=== PATIENT | male | born 1950 | race Caucasian/White ===

== ENCOUNTER → 2017-12-30 17:28 | Outpatient (CLI) | payer BC, SELFPAY ==
--- NOTE | 2017-12-30 17:32 | CT_ITS ---
STUDY: CT CHEST WITHOUT CONTRAST REASON FOR EXAM: Male, 67 years old. Lung nodule follow-up RADIATION DOSAGE (If Supplied By Facility): CTDIvol = ( 11.64 ) mGy, DLP = ( 416.00 ) mGycm TECHNIQUE: Transaxial imaging was performed without the administration of intravenous contrast material. Individualized dose optimization techniques were used for this CT. COMPARISON: 09.06.16 FINDINGS: There is no pneumothorax. There are emphysematous changes of the lungs with emphysematous blebs. There is a right 2.9 mm upper lobe nodule. Series 2 image 54. There is an elevated right hemidiaphragm. There are degenerative changes of the shoulders. There are calcifications of the coronary arteries. Calcified right hilar mediastinal lymph nodes. Normal pulmonary arteries. There is atherosclerotic calcification of the aortic arch with tortuosity and elongation of the aortic arch and descending thoracic aorta. There are multi-level degenerative changes of the thoracic spine. There is no demonstrated abnormality of the visualized upper abdomen. CT/Chest without Contrast IMPRESSION: There is a right 2.9 mm upper lobe nodule. This is stable in size. No further follow-up required. Emphysema Electronically Signed: Matt Flores MD at 18:56 EST , Service support ,
== END ==
PROVIDERS: Family Provider Internal Medicine; PCP Internal Medicine; Visit Provider Internal Medicine
DX: R91.1 Solitary pulmonary nodule (principal)
CPT/HCPCS: 71250

== ENCOUNTER → 2018-07-28 14:16 | Outpatient (CLI) | payer MEDICARE, OTHER, SELFPAY ==
--- NOTE | 2018-07-28 14:23 | RAD_ITS ---
STUDY: X-RAY CHEST REASON FOR EXAM: Male, 67 years old. Abnormal EKG TECHNIQUE: Frontal and lateral views of the chest. COMPARISON: CT scan 12/30/2017. FINDINGS: The lungs are hyperexpanded. There are coarsened interstitial markings suggestive of mild chronic fibrosis. No gross focal infiltrates. No gross effusions. Moderately elevated right hemidiaphragm. Normal size heart. There are calcified mediastinal lymph nodes. Normal visualized pulmonary arteries. Normal visualized aortic arch and descending thoracic aorta. Normal visualized thoracic spine. Normal visualized ribs, clavicles, and shoulders. There is no demonstrated abnormality of the visualized soft tissue structures of the upper abdomen. RAD/Chest PA and Lateral IMPRESSION: There are findings consistent with COPD. There is no evidence of acute chest disease. Electronically Signed: John Kahn MD at 23:09 EDT , Service support ,
== END ==
PROVIDERS: Family Provider Internal Medicine; PCP Internal Medicine; Visit Provider Nurse Practitioner
DX: R94.31 Abnormal electrocardiogram [ECG] [EKG] (principal)
CPT/HCPCS: 71046

== ENCOUNTER → 2018-11-25 06:49 | Outpatient (CLI) | payer MEDICARE, OTHER, SELFPAY ==
--- NOTE | 2018-11-25 14:14 | PFTCOMP_ITS ---
COMPLETE PULMONARY FUNCTION TEST INTERPRETATION Brief HPI: Patient is a 68 year old male, currently under the care of Dr. Mcallister, who presents to [facility] for complete pulmonary function tests secondary to diagnosis of centrilobular emphysema. Respiratory therapist reports good effort and reproducible results. Interpretation: Forced expiration spirometry shows a very severe large airways obstructive ventilatory defect with an FEV1 of 39% predicted. There is a significant bronchodilator response in FVC and FEV1 by strict ATS criteria. Spirograms are of good quality and plateau slowly, indicating slowly emptying areas of the lungs. The respiratory flow volume loop shows decreased expiratory flow rates at all lung volumes consistent with airway obstruction. Lung volumes by body plethysmography show an elevated total lung capacity at 7.3 L, 125% predicted. FRC and RV are elevated out of proportion. Lung volume measurements are consistent with hyperinflation and air-trapping. Diffusion capacity by carbon monoxide is decreased at 57% predicted. The airway resistance is elevated. Compared to previous pulmonary function tests from 06/22/2015, there has been a significant reduction in FEV 1 by 19%, resulting in air trapping with hyperinflation. Impression: Partially reversible very severe large airways obstructive ventilatory defect with reduction in diffusing capacity, resulting in air trapping with hyperinflation, and in a pattern consistent with COPD/asthma overlap syndrome.
== END ==
PROVIDERS: Family Provider Internal Medicine; PCP Internal Medicine
DX: J43.2 Centrilobular emphysema (principal)
CPT/HCPCS: 94060; 94726; 94729

== ENCOUNTER → 2018-11-29 07:53 | Outpatient (CLI) | payer MEDICARE, OTHER, SELFPAY ==
[2018-11-29 08:15] VITALS: PULSE 58; PULSE 62; PULSE 69; PULSE 78; PULSE 80; PULSE 81; PULSE 82; PULSE 83; O2SAT 90; O2SAT 91; O2SAT 92; O2SAT 94
--- NOTE | 2018-11-29 12:14 | PCM.PSN.6M ---
PSN 6 Minute Walk Test - 6 Minute Walk Test 6 Minute Walk Test: 6 Minute Walk Test PSN:6-Minute Walk Test Start: 11/29/18 08:27 Freq: Status: Active Protocol: RESP.6MINW Document 11/29/18 08:15 HG (Rec: 11/29/18 08:29 HG [id number]) 6 Minute Walk Test Date Performed 11/29/18 Time Performed 08:15 Height 5 ft 7 in Weight: 160 lb Weight in Pounds 160.[address]: [facility] Doctor,Out of Assistive device used: None Pre-test Oxygen Delivery Method Room Air Pulse Ox (%) 94 Pulse Rate (60-100 beats/min) 58 L Dyspnea Fuentes Scale (0-10) 0 Exertion Fuentes Scale (6-20) 6 1st minute Oxygen Delivery Method Room Air Pulse Ox (%) 94 Pulse Rate (60-100 beats/min) 62 2nd minute Oxygen Delivery Method Room Air Pulse Ox (%) 90 Pulse Rate (60-100 beats/min) 78 3rd minute Oxygen Delivery Method Room Air Pulse Ox (%) 91 Pulse Rate (60-100 beats/min) 80 4th minute Oxygen Delivery Method Room Air Pulse Ox (%) 91 Pulse Rate (60-100 beats/min) 81 5th minute Oxygen Delivery Method Room Air Pulse Ox (%) 92 Pulse Rate (60-100 beats/min) 82 6th minute Oxygen Delivery Method Room Air Pulse Ox (%) 91 Pulse Rate (60-100 beats/min) 83 Post-test Oxygen Delivery Method Room Air Pulse Ox (%) 94 Pulse Rate (60-100 beats/min) 69 Dyspnea Fuentes Scale (0-10) 2 Exertion Fuentes Scale (6-20) 11 Full Laps Walked 23 Partial Lap, Number of Tiles Walked 0 Total Distance Walked (ft) 1357 - Interpretation Interpretation: The patient ambulated 1357 feet over the course of 6 minutes beginning on room air without assistive devices or breaks. Pretesting oxygen saturation was noted to be 94% on room air. With ambulation, the dayron oxygen saturation was 90%. This represents a significant exertional oxygen desaturation. - Recommendations Recommendations: There is no indication for the use of supplemental oxygen at this time. However, close interval follow-up is recommended, given the degree of oxygen desaturation noted during this study.
== END ==
PROVIDERS: Family Provider Internal Medicine; PCP Internal Medicine
DX: J43.2 Centrilobular emphysema (principal)
CPT/HCPCS: 94618

== ENCOUNTER → 2019-02-08 06:45 | Outpatient (CLI) | payer MEDICARE, OTHER, SELFPAY ==
--- NOTE | 2019-02-08 06:47 | CT_ITS ---
STUDY: CT CHEST WITHOUT CONTRAST REASON FOR EXAM: Male, 68 years old. Follow-up pulmonary nodule. RADIATION DOSAGE (If Supplied By Facility): CTDIvol = ( 13.16 ) mGy, DLP = ( 476.72 ) mGycm TECHNIQUE: Transaxial imaging was performed without the administration of intravenous contrast material. Individualized dose optimization techniques were used for this CT. COMPARISON: May and November 07, 2015, September 06, 2016 and December 30, 2017 FINDINGS: There are bilateral emphysematous changes present. There is a 3.4 mm stable nodule within the right middle lobe, not significantly changed since May 2015. There are calcifications of the coronary arteries. There are calcified mediastinal and right hilar lymph nodes. Normal unenhanced pulmonary arteries. Normal aorta arch and descending thoracic aorta. Normal osseous structures. The limited images of the upper abdomen demonstrate hepatic and splenic granulomas. CT/Chest without Contrast IMPRESSION: Stable 3.4 mm right middle lobe nodule since May 2015 suggesting a benign process. Emphysema. Atherosclerosis. Evidence of prior granulomatous disease. Electronically Signed: Kelly Cortes MD at 9:12 EDT Tel , Service support ,
== END ==
PROVIDERS: Family Provider Nurse Practitioner; PCP Nurse Practitioner
DX: R91.1 Solitary pulmonary nodule (principal)
CPT/HCPCS: 71250

== ENCOUNTER → 2019-09-06 | Outpatient (CLI) | payer MEDICARE, OTHER, SELFPAY ==
--- NOTE | 2019-09-06 08:13 | CDU_ITS ---
Reason For Study: carotid stenosis Rt. Velocities/BP Lt. Velocities/BP Prox CCA 81.2/16.0 cm/sec. Prox CCA 91.6/22.3 cm/sec. Mid CCA 51.3/13.4 cm/sec. Mid CCA 47.6/12.4 cm/sec. Dist CCA 51.3/14.7 cm/sec. Dist CCA 52.0/14.6 cm/sec. Prox ICA 39.9/12.4 cm/sec. Prox ICA 45.4/14.6 cm/sec. Mid ICA 57.5/21.2 cm/sec. Mid ICA 58.6/22.3 cm/sec. Dist ICA 63.0/23.4 cm/sec. Dist ICA 72.9/27.8 cm/sec. Rt. ICA/CCA = 1.2. Lt. ICA/CCA = 1.5. Prox ECA 72.1/8.2 cm/sec. Prox ECA 78.3/12.4 cm/sec. Rt. Vert. 37.7/14.6 cm/sec. Lt. Vert. 40.4/9.9 cm/sec. Right Extracranial There is intimal thickening but no significant atherosclerotic plaque noted in the right common carotid artery. There is heterogeneous, irregular atherosclerotic plaque noted in the right internal carotid artery. There is intimal thickening but no significant atherosclerotic plaque noted in the right external carotid artery. Antegrade flow is noted in the right vertebral artery. Left Extracranial There is intimal thickening but no significant atherosclerotic plaque noted in the left common carotid artery. There is heterogeneous, irregular atherosclerotic plaque noted in the left internal carotid artery. There is heterogeneous, irregular atherosclerotic plaque noted in the left external carotid artery. Antegrade flow is noted in the left vertebral artery. Procedure Carotid Duplex [id number]. The exam was diagnostic. Exam performed in department. Interpretation Summary Mild (<50%) stenosis right extracranial internal carotid. Mild (<50%) stenosis left extracranial internal carotid. Flow within the vertebral arteries is antegrade bilaterally. Ordering Physician: Kimberly Pa Performed By: Hiram Willard RVT
== END | disposition home or self-care (01) ==
LOC: PSN 07:40
PROVIDERS: Family Provider Nurse Practitioner; PCP Nurse Practitioner; Referring Provider Nurse Practitioner; Visit Provider Nurse Practitioner
DX: I65.23 Occlusion and stenosis of bilateral carotid arteries (principal)
CPT/HCPCS: 93880

== ENCOUNTER 2019-12-22 23:05 | Inpatient (IN) | payer MEDICARE, OTHER, SELFPAY ==
[2019-12-22 23:06] VITALS: BP 156/114; PULSE 70; RESP 21; TEMP 37.1; O2SAT 95; BMI 25.3
--- NOTE | 2019-12-22 23:20 | EKG12_ITS ---
Test Reason : DYSRYTHMIA Blood Pressure : / mmHG Vent. Rate : 071 BPM Atrial Rate : 071 BPM P-R Int : 154 ms QRS Dur : 090 ms QT Int : 382 ms P-R-T Axes : 076 124 071 degrees QTc Int : 415 ms Normal sinus rhythm Right axis deviation Abnormal ECG Confirmed by DENISA ANSARI, MARYURI ([id number]), health editor SALLY DAVIS ([id number]) on 12/26/2019 10:13:34 AM Referred By: AWILDA Confirmed By:RADHA CRAWLEY MD
[2019-12-22] MEDS: 0.9% Normal Saline 1,000 ML 150 ML IV (23:28)
[2019-12-22] MEDS: Albuterol 2.5 MG/3 ML VIAL.NEB. INHALATION ×3 (23:38)
[2019-12-22] MEDS: Ipratropium/Albuterol Sulfate 3 ML AMPUL.NEB INHALATION (23:38)
[2019-12-22 23:39] VITALS: PULSE 83; RESP 28
[2019-12-22 23:50] LABS: Absolute Lymphocyte Count 1.93 X10^3/uL (0.83-4.51); Absolute Neutrophil Count 9.6 X10^3/uL (2.0-7.7); Basophil# 0.08 X10^3/uL; Basophil% 0.6 % (0-1); Eosinophil# 0.09 X10^3/uL; Eosinophils% 0.7 % (0-5); Hematocrit 53.4 % (40-54); Hemoglobin 17.4 g/dL (13.0-16.5); Lymphocyte # 1.93 X10^3/ul (4.0); Lymphocyte % 14.7 % (19-41); Mean Corp Hgb Conc 32.6 g/dL (32-36); Mean Corpuscular Hgb 31.4 pg (27.0-32.0); Mean Corpuscular Volume 96.2 fL (80-94); Mean Platelet Vol. 8.9 fl (6.2-12.0); Monocyte# 1.39 X10^3/uL; Monocyte% 10.6 % (0-10); NRBC Flagged by Analyzer 0 % (0-5); Neutrophil # 9.61 X10^3/uL (2.7-7.7); Neutrophil % 72.9 % (47-70); Platelet Count 277 K/mm3 (150-450); RBC Distribution Width CV 12.4 % (11.6-14.6); RBC Distribution Width SD 43.9 fl (35.1-43.9); Red Blood Count 5.55 M/mm3 (4.6-6.2); White Blood Count 13.2 K/mm3 (4.4-11.0)
[2019-12-22 23:57] LABS: Anion Gap 2 (5-15); BUN 20 mg/dL (7-18); BUN/Creat Ratio 17.4 RATIO (10-20); Calcium,Total 9.5 mg/dL (8.5-10.1); Chloride 106 mmol/L (98-107); Creatinine, Serum 1.15 mg/dL (0.70-1.30); EST Glomerular Filtration Rate 67 mL/min (>60); Est Glom Filt Rate - Afr Amer 82 mL/min (>60); Estimated Creatinine Clearance 58.28 ml/min; Glucose 103 mg/dL (74-106); Potassium 4.9 mmol/L (3.5-5.1); Sodium Level 141 mmol/L (136-145)
[2019-12-23] VITALS (22 sets, daily range): BP systolic 119–141; BP diastolic 50–80; PULSE 68–86; RESP 18–32; TEMP 36.6–36.9; O2SAT 93–98; BMI 25.4; BMI 35.4
--- NOTE | 2019-12-23 | RAD_ITS ---
HISTORY: SOB HX OF COPD EXAMINATION/TECHNIQUE: XR Chest 2 Views: COMPARISON: 07/28/2018 FINDINGS: Cardiac telemetry leads in place. No significant change. Chronic mild elevation of the right hemidiaphragm. Normal heart size. Low emphysema. Numerous granulomatous calcifications at the right hilum and azygous region. No acute infiltrate. No vascular congestion or definite pleural effusion. RAD/Chest PA and Lateral IMPRESSION: 1. No acute disease or significant change. 2. Emphysema. Old granulomatous disease. 3. Chronic elevation of the right hemidiaphragm. at 0130 Reported and signed by: Saad Acevedo MD Electronically Signed: Saad Acevedo, at 1:29 EST Tel , Service support ,
[2019-12-23] MEDS: MethylPREDNISolone 125 MG/2 ML Vial IV (00:28)
--- NOTE | 2019-12-23 01:47 | ED.DCSUM_ITS ---
- ER Visit Summary Date of Service: 12/23/19 Chief Complaint: [Shortness of breath] History of Present Illness: The patient is a 69 M [presents the emergency department complaint shortness of breath that started yesterday. Patient developed a cough that is bringing up small amounts of white phlegm. He denies any fevers. Patient states this morning he remembers try to get up out of bed and then the next and he knew he was on the floor. Patient not sure what happened. Oftentimes with cough has a hard time catching his breath and feels like he is in a pass out.] Patient denies any chest pain. Denies recent travel or surgery. Patient does have history of COPD. Physical Examination: [HEENT-PERRLA, EOMI. Cranial nerves II through XII grossly intact. TMs clear. Mucous membranes moist. No adenopathy. Cardiovascular-regular rate and rhythm without murmur or ectopy Lungs-breath sounds bilaterally with expiratory wheezes. Patient slightly tachypneic. No excessive muscle use or retractions. Abdomen-normoactive bowel sounds, soft, nontender, no rebound or rigidity, no peritoneal signs. Extremities-intact ?4, normal range of motion, normal pulses, atraumatic] Test Results: [EKG obtained showed sinus rhythm with a ventricular rate of 71 bpm with no acute ST segment changes noted. CBC with differential showed a slightly elevated white count 13.2, hemoglobin 17, hematocrit 53, platelets 277. Chemistries unremarkable. Troponin was less than 0.015. Chest x-ray showed emphysema otherwise nothing acute.] Emergency Department Course and Treatment: [Received DuoNeb aerosol and albuterol aerosol. Patient was started on Solu-Medrol 125 mg IV. Patient was ambulated afterwards in the department and his O2 sat dropped to 87% with a few steps. Patient was ordered more albuterol.] Treatment Plan: [Admit] Disposition: [Admit] Impression: [COPD exacerbation Hypoxemia] This note was generated with [employer] dictation software. It may contain incorrect words, spelling, and punctuation that were not noted in review of the chart prior to signing ED Disposition - Plan for ED Patient: Referrals: Kimberly Pa, ACTIVITIES COORDINATOR-C [Primary Care Provider] -
--- NOTE | 2019-12-23 01:54 | PCM.HP.STD ---
Problem List (1) COPD with acute exacerbation Status: Chronic History of Present Illness Date of Admission: 12/23/19 Chief Complaint: sob The patient is a 69 year old M with a significant history of ulcerative colitis; fungus tumor status post right thoracotomy and COPD stage III who presented to emergency department with progressive worsening shortness of breath that started about 2 days ago. His symptoms began with sore throats and thereafter he developed burning in his chest. Because of the chest pain patient fine difficult to lie in the bed. At the emergency department on room air his oxygen saturation was 95%. However with ambulation his oxygen saturation dropped to 87%. His sore throat has gone away however he continues to have burning in his chest. Patient reports of productive cough of clear sputum but it is chronic. He sees a filter press tender head in [place] who gave him prednisone to take when his baseline shortness of breath worsens. As such patients has taken 3 pills of prednisone so far with his current symptoms. Patient is planning to move his pulmonary care to Dr. Khoury, filter press tender head with our [facility]. Also, patient reported passing out. He is unsure whether it is shortness of breath that caused him to pass out or not. He fell with his passing out. Past Medical History Past Medical History (Chronic Problems): Chronic Problems COPD with acute exacerbation (Chronic) Allergies Penicillins [PCN] Allergy (Verified 12/22/19 23:09) Unknown Home Medications: Ambulatory Orders Medication Instructions Recorded Albuterol Sulfate [Proventil Hfa] 6.7 gm IH Q6H PRN PRN 12/22/19 Budesonide/Formoterol 160/4.5 2 puff INHALATION BID 12/22/19 [Symbicort 160/4.5 Mcg Inhaler (SP)] Bupropion HCl [Wellbutrin Sr] 150 mg PO DAILY 12/22/19 Eszopiclone [Lunesta] 1 mg PO QHS PRN PRN 12/22/19 Mesalamine [Lialda] 2.4 gm PO DAILY 12/22/19 Prednisone See Taper PO UD 12/22/19 Tiotropium [place] [Spiriva 2 puff PO DAILY 12/22/19 Respimat] Surgical History: - - Right thoracotomy for fungus tumor Lives: Spouse/ Significant Other Smoking Status: Current every day smoker Tobacco Use: Cigarettes Alcohol: Rare - *Family History Maternal History Items: - - His mother fell broke her hip; developed sepsis and . Paternal History Items: Heart Disease - Father had a CABG. Review of Systems Constitutional: Denies: Chills, Fever, Weight Change HEENT: Reports: Sore Throat - Patient had a sore throat at the beginning of his current symptoms. His sore throat has now resolved.. Denies: Head Aches, Sinus Congestion, Sinus Drainage Cardiovascular: Denies: Chest Pain, Palpitations Respiratory: Reports: Cough, Shortness of Breath, Shortness of breath at rest, Sputum production, Wheezing Gastrointestinal: Denies: Abdominal Pain, Nausea, Vomiting Genitourinary: Denies: Dysuria Musculoskeletal: Denies: Joint Pain, Joint Tenderness Skin: Denies: Rash, Wounds Neurological: Denies: Numbness, Tingling, Focal weakness Psychiatric: Denies: Homicidal Ideations, Suicidal Ideations Hematologic/ Lymphatic: Denies: Easy Bruising, Easy Bleeding VTE Information - Inpt Only VTE Present on Admission: No VTE Mechan Device Prophylaxis: None VTE Pharm Prophylaxis ordered?: Yes - Physical Exam Vitals/I&O's: Vital Signs Temp Pulse Resp BP Pulse Ox 98.7 F 68 26 H 133/69 H 96 12/22/19 23:06 12/23/19 01:49 12/23/19 01:49 12/23/19 01:49 12/23/19 01:49 Oxygen Delivery Method Room Air Weight: 73.4 kg Body Mass Index (BMI) 25.3 General: Alert, Oriented x3, Cooperative HEENT: Atraumatic, PERRLA, EOMI, Normocephalic Neck: Supple, No JVD, Negative Carotid Bruits Lungs: Diminished, Tachypneic, Using Accessory Muscles, Wheezes, - - Conversational dyspnea Cardiovascular: Regular rate, Normal S1, Normal S2, No murmurs Abdomen: Bowel Sounds Present, Soft, Non Tender, Hyperactive Bowel Sounds Extremities: No edema, Capillary Refill Less than 3 Seconds Skin: No rashes, No breakdown Musculoskeletal: No Tenderness to Palpation of Joints or Extremities Neurological: Cranial nerves II-XII grossly intact Psych/Mental Status: Anxious Microbiology Past 72 Hours 12/22/19 23:30 Mucosa - Nose Influenza Types A,B Direct FA (JEVON) - Final Laboratory Results 12/22/19 23:30: WBC 13.2 H, RBC 5.55, Hgb 17.4 H, Hct 53.4, MCV 96.2 H, MCH 31.4, MCHC 32.6, RDW Std Deviation 43.9, RDW Coeff of Yana 12.4, Plt Count 277, MPV 8.9, Immature Gran % (Auto) 0.500, Neut % (Auto) 72.9 H, Lymph % (Auto) 14.7 L, [place] % (Auto) 10.6 H, Eos % (Auto) 0.7, Baso % (Auto) 0.6, Absolute Neuts (auto) 9.6 H, Absolute Lymphs (auto) 1.93, Nucleated RBC % 0 12/22/19 23:30: Sodium 141, Potassium 4.9, Chloride 106, Carbon Dioxide 33.0 H, Anion Gap 2 L, BUN 20 H, Creatinine 1.15, Estim Creat Clear Calc 58.28, Est GFR (MDRD) Af Amer 82, Est GFR (MDRD) Non-Af 67, BUN/Creatinine Ratio 17.4, Glucose 103, Calcium 9.5, Troponin I < 0.015 Current Medications Sodium Chloride () 1,000 mls @ 150 mls/hr IV .Q6H40M ONE Stop: 12/23/19 05:59 Last Admin: 12/22/19 23:28 Dose: 150 mls/hr Documented by: Assessment/Plan The patient is a 69 year old M with a significant history of ulcerative colitis; fungus tumor status post right thoracotomy; and COPD stage 3 who presented to emergency department with progressive worsening shortness of breath and who passed out and fell consistent with COPD exacerbation; and syncope. Acute exacerbation of COPD Impression of chest x-ray: No acute disease or significant change. Emphysema. Old granulomatous disease. Chronic elevation of the right hemidiaphragm . EKG independently reviewed confirms right axis deviation. No concerning ST or T wave abnormalities. Scheduled DuoNeb Albuterol as needed Received Solu-Medrol 125 mg in emergency department. Solu-Medrol [id number]. Start on azithromycin. Oxygen as needed. Get ABG. If ABG is is concerning consider BiPAP. Monitor BMP and CBC. Rapid influenza screen and imaging department was unremarkable. Get a comprehensive respiratory pathogen panel. Syncope Could be secondary to hypoxemia and hypercapnia EKG as above. Get orthostatic vitals. Get an echocardiogram. Tobacco abuse Bupropion continued. Nicotine patch ordered. Counseled. Depression Wellbutrin continued Ulcerative colitis Mesalamine continued Insomnia Lunesta continued DVT prophylaxis Subcutaneous Lovenox Code Visit Inpatient E&M: 26891 Init Hosp L3
[2019-12-23] MEDS: Albuterol 2.5 MG/3 ML VIAL.NEB. INHALATION (01:55)
[2019-12-23 04:01] LABS: Allen Test POS; Base Excess 1 mmol/L (-2 to +2); Bicarbonate 26.1 mmol/L (22-26); Blood Gas Specimen Type ART; O2 Delivery Device Nasal Can; PO2 77 mmHG (75-100); SITE R Radial; SO2 95 % (95-99); Time Given 340; Total Carbon Dioxide 27 mmol/L; pCO2 44.6 mmHg (35-45); pH 7.38 (7.35-7.45)
[2019-12-23 06:14] LABS: Absolute Lymphocyte Count 0.55 X10^3/uL (0.83-4.51); Absolute Neutrophil Count 10.5 X10^3/uL (2.0-7.7); Basophil# 0.02 X10^3/uL; Basophil% 0.2 % (0-1); Hemoglobin 15.6 g/dL (13.0-16.5); Lymphocyte # 0.55 X10^3/ul (4.0); Lymphocyte % 4.9 % (19-41); Mean Corp Hgb Conc 31.8 g/dL (32-36); Mean Corpuscular Hgb 30.4 pg (27.0-32.0); Mean Corpuscular Volume 95.5 fL (80-94); Monocyte# 0.13 X10^3/uL; Monocyte% 1.2 % (0-10); NRBC Flagged by Analyzer 0 % (0-5); Neutrophil # 10.53 X10^3/uL (2.7-7.7); Neutrophil % 93.2 % (47-70); POSITIVE DIFFERENTIAL YES; Platelet Count 244 K/mm3 (150-450); RBC Distribution Width CV 12.5 % (11.6-14.6); RBC Distribution Width SD 43.5 fl (35.1-43.9); Red Blood Count 5.13 M/mm3 (4.6-6.2); White Blood Count 11.3 K/mm3 (4.4-11.0)
[2019-12-23 06:35] LABS: Anion Gap 9 (5-15); BUN 18 mg/dL (7-18); BUN/Creat Ratio 13.7 RATIO (10-20); Calcium,Total 8.4 mg/dL (8.5-10.1); Chloride 104 mmol/L (98-107); Creatinine, Serum 1.31 mg/dL (0.70-1.30); EST Glomerular Filtration Rate 58 mL/min (>60); Est Glom Filt Rate - Afr Amer 70 mL/min (>60); Estimated Creatinine Clearance 51.16 ml/min; Glucose 182 mg/dL (74-106); Potassium 3.5 mmol/L (3.5-5.1); Sodium Level 138 mmol/L (136-145)
[2019-12-23 06:39] LABS: Differential Comment SCANNED; Differential Indicated SCAN CRITERIA MET
[2019-12-23] MEDS: Ipratropium/Albuterol Sulfate 3 ML AMPUL.NEB INHALATION ×4 (06:53→20:00)
--- NOTE | 2019-12-23 08:12 | PCM.PN.BLA ---
Progress Note This is a 63 years old male patient presented to the emergency room because of shortness of breath, found to have acute COPD exacerbation with hypoxia. Reportedly, patient had syncopal episode. By direct questioning, patient mentioned that he stood up at the bed edge and he collapsed because he was weak. He mentioned that he did not lose his consciousness, was not dizzy or lightheaded. He denied preceding chest pain or palpitation. Today, he reported minimal improvement of his symptoms. Chest x-ray showed no acute findings. Routine blood work was unremarkable. ABG reviewed. EKG revealed normal sinus rhythm without evidence of acute segment changes or cardiac arrhythmias. Troponin was negative. He is on IV steroids, IV Zithromax and bronchodilators. Plan to continue same treatment, cancel 2D echocardiogram. STROKE Vital Signs/Narrative: Vital Signs Temp Pulse Resp BP Pulse Ox 12/23/19 06:53 84 20 H 93 12/23/19 06:51 98.2 F 69 22 H 119/67 96 12/23/19 04:40 98.3 F 77 26 H 130/67 H 95
[2019-12-23] MEDS: Enoxaparin 40 MG/0.4 ML Syringe SC (09:35)
[2019-12-23] MEDS: guaiFENesin 1,200 MG Tablet 1200 MG PO ×2 (09:35→21:22)
[2019-12-23] MEDS: buPROPion (SR) 150 MG Tablet.SA PO (09:36)
[2019-12-23] MEDS: Mesalamine 1.2 GM Tablet 2.4 GM PO (09:36)
--- NOTE | 2019-12-23 09:50 | CASEMGMT ---
RN FERNANDA FLASH WELDING MACHINE OPERATOR CM to room to meet with patient for initial transition planning/care coordination assessment. USAMA MICHAEL introduced self and role at [facility]. Pt voices understanding and consents to assessment at this time. Pt sitting up in chair in room in no distress at this time. Pt is A/O at this time and answers all questions appropriately. Care providers, pharmacy, and demographics verified/updated at this time. PCP: Dr Kimberly Pa Specialists: Dr Hamilton @ [facility] --pulmonology. States is in the process of switching to Dr Khoury. Dr Kincaid--cardiaology @ [facility] Preferred Pharmacy: [facility] Retail Insurance: MCR, MMO Prescription Benefit: Yes Living Will/HPOA: Has both LW and Healthcare POA, who is his daughter, Kimmie Ibanez. LNOK: : Zohra Archibald. 3 adult children Living Arrangements: Lives with his . Independent. Transportation: Pt states drives self and states no transportation concerns at this time. also drives DME: States has the following DME: [employer]. No Home O2. May need Home oxygen qualification testing completed prior to discharge. Given list of local DME companies--pt's preference is [employer]. Pt states no need for further DME at this time. HHC/SNF: No history of either. Has went to [facility] in the past for OP therapy. Pt wishes to return home and states has no concerns with going home at time of discharge. CM to follow for home oxygen needs and any further discharge planning/needs. Pt voices no further concerns/needs at this time. Advised pt to ask for CM if any further questions/concerns/needs arise. Voices understanding. PLAN: Home. May need Home oxygen qualification testing completed prior to discharge. [employer] is pt's preference for DME company. Greg REYNOSO RN, CM
[2019-12-23] MEDS: 0.9% Saline Lock 10 ML Syringe IV (21:25)
[2019-12-23] MEDS: Zolpidem Tartrate 5 MG Tablet PO (23:58)
[2019-12-24] VITALS (16 sets, daily range): BP systolic 120–145; BP diastolic 62–72; PULSE 61–90; RESP 14–21; TEMP 36.3–36.7; O2SAT 95–97
[2019-12-24] MEDS: Ipratropium/Albuterol Sulfate 3 ML AMPUL.NEB INHALATION ×5 (07:14→22:38)
--- NOTE | 2019-12-24 07:49 | PCM.PROGNOTE ---
Patient Problems: Active and Suspected Problems COPD with acute exacerbation (Acute) Subjective: Chief complaint follow-up after admission for acute COPD exacerbation triggered by rhinovirus and hypoxia. Patient seen and examined. No acute events overnight. He reported very minimal slow improvement of his symptoms, still having difficulties expectorating sputum. Shortness of breath slightly better than yesterday. Remains on 2 L of oxygen, other vital signs are stable. - Physical Exam Vitals/I&O's: Vital Signs Temp Pulse Resp BP Pulse Ox 97.6 F L 70 20 H 130/66 H 95 12/24/19 07:38 12/24/19 07:38 12/24/19 07:38 12/24/19 07:38 12/24/19 07:38 Oxygen Flow Rate (L/min) 2 Oxygen Delivery Method Nasal Cannula Weight: 162 lb 7.691 oz Body Mass Index (BMI) 25.4 Intake and Output for Last 24 Hours 12/22/19 12/23/19 12/24/19 23:59 23:59 23:59 Intake Total 2347.00 / 2347.00 Output Total 1989 Balance 357.00 / 357.00 General: Alert, Oriented x3, Cooperative, - - Minimally short of breath. HEENT: Atraumatic, PERRLA, EOMI, Normocephalic Oral: Moist Mucosa, No Gingival or Mucosal Lesions/ Ulcerations Neck: Supple, No JVD, Negative Carotid Bruits, Trachea Midline, Thyroid Normal Size and Texture Lungs: No rales, Diminished, Rhonchi, Short of Breath, - - Decreased breath sounds bilateral, bilateral expiratory wheezes. Cardiovascular: Regular rate, Regular Rhythm, Normal S1, Normal S2, PMI Normal Abdomen: Bowel Sounds Present, Soft, Non Tender, Non-Distended, No Hepato-splenomegaly Extremities: No clubbing, No cyanosis, No edema Skin: No rashes, No breakdown Lymphatic: No Cervical, Supraclavicular, or Inguinal Adenopathy Neurological: Cranial nerves II-XII grossly intact, Neuro grossly intact Psych/Mental Status: Normal Affect, Appropriate Microbiology Past 72 Hours 12/23/19 03:40 Mucosa - Nasopharyngeal Respiratory Panel (PCR) - Final Rhinovirus 12/22/19 23:30 Mucosa - Nose Influenza Types A,B Direct FA (JEVON) - Final Current Medications Acetaminophen (Tylenol) 650 mg PO Q6H PRN PRN PRN Reason: Pain Score 1-10 /Temp>100.7 Acetylcysteine (Mucomyst) 800 mg INHALATION Q8H.RT [facility] Albuterol Sulfate (Ventolin Aerosols) 2.5 mg INHALATION Q2H PRN PRN PRN Reason: Shortness of Breath/Wheezing Albuterol/Ipratropium (Duoneb) 3 ml INHALATION Q4HWA.RT [facility] Last Admin: 12/24/19 07:14 Dose: 3 ml Documented by: Bupropion HCl (Wellbutrin Sr (150mg Tablets)) 150 mg PO DAILY [facility] Last Admin: 12/23/19 09:36 Dose: 150 mg Documented by: Enoxaparin Sodium (Lovenox) 40 mg SC DAILY [facility] Last Admin: 12/23/19 09:35 Dose: 40 mg Documented by: Glucagon () 1 mg IM .X1 PRN PRN Reason: Hypoglycemia Guaifenesin (Mucinex) 1,200 mg PO BID [facility] Last Admin: 12/23/19 21:22 Dose: 1,200 mg Documented by: Sodium Chloride () 250 mls @ 15 mls/hr IV .[id number] PRN PRN Reason: Saline Flush Last Infusion: 12/23/19 22:57 Dose: 0 mls/hr Documented by: Sodium Chloride () 250 mls @ 15 mls/hr IV .[id number] PRN PRN Reason: Additional IVPB Infusion Azithromycin 500 mg/ Dextrose 255 mls @ 250 mls/hr IV Q24@2200 [facility] Stop: 12/24/19 23:02 Last Infusion: 12/23/19 22:32 Dose: Infused Documented by: Dextrose (Dextrose 10%-Water) 250 mls @ 999 mls/hr IV .Q16M PRN; Protocol PRN Reason: HYPOGLYCEMIA Mesalamine (Lialda) 2.4 gm PO DAILYCM [facility] Last Admin: 12/23/19 09:36 Dose: 2.4 gm Documented by: Methylprednisolone (Solu-Medrol) 40 mg IV Q8 [facility] Last Admin: 12/24/19 05:35 Dose: 40 mg Documented by: Nicotine (Nicoderm Cq (Pbkc)) 21 mg TRANSDERM. DAILY [facility] Last Admin: 12/23/19 04:32 Dose: 21 mg Documented by: Ondansetron HCl (Zofran) 4 mg IV Q8H PRN PRN PRN Reason: Nausea Sodium Chloride () 10 - 40 ml IV UD PRN PRN Reason: SALINE FLUSH Last Admin: 12/23/19 21:25 Dose: 10 ml Documented by: Zolpidem Tartrate (Ambien (Generic)) 5 mg PO QHS PRN PRN PRN Reason: SLEEP Last Admin: 12/23/19 23:58 Dose: 5 mg Documented by: Medical Necessity - Tobacco Use Smoking Status: Current every day smoker Tobacco Use: Cigarettes Assessment/Plan All Active Problems COPD with acute exacerbation (Acute) This is a 69 years old male patient presented to the emergency room because of worsening shortness of breath and wheezing as well as cough and he was found to have acute COPD exacerbation with hypoxia. #1 acute COPD exacerbation/hypoxia: Triggered by rhinovirus. Chest x-ray reviewed, no acute infiltrate consolidation. He is on IV Solu-Medrol, IV Zithromax and bronchodilators. He remained on 2 L of oxygen, minimal improvement. Plan: Continue same treatment, start Mucomyst inhalation 3 times daily. #2 ulcerative colitis: Stable, no complaints. Continue mesalamine. #3 depression: Stable, continue Wellbutrin. #4 tobacco abuse: NicoDerm patch. #5 DVT prophylaxis: Subcu Lovenox. This note was generated with [employer] dictation software. It may contain incorrect words, spelling, and punctuation that were not noted in checking the note before signing. Code Visit Inpatient E&M: 45170 Subs Hosp L2
[2019-12-24] MEDS: Mesalamine 1.2 GM Tablet 2.4 GM PO (09:14)
[2019-12-24] MEDS: guaiFENesin 1,200 MG Tablet 1200 MG PO ×2 (09:15→21:42)
[2019-12-24] MEDS: buPROPion (SR) 150 MG Tablet.SA PO (09:15)
[2019-12-24] MEDS: Enoxaparin 40 MG/0.4 ML Syringe SC (09:15)
[2019-12-24] MEDS: 0.9% Saline Lock 10 ML Syringe IV ×2 (13:21→21:42)
[2019-12-25] VITALS (16 sets, daily range): BP systolic 124–143; BP diastolic 64–75; PULSE 67–92; RESP 16–20; TEMP 36.4–36.8; O2SAT 88–95
[2019-12-25] MEDS: Zolpidem Tartrate 5 MG Tablet PO ×2 (00:01→23:44)
[2019-12-25] MEDS: 0.9% Saline Lock 10 ML Syringe IV ×3 (06:17→21:05)
[2019-12-25] MEDS: Ipratropium/Albuterol Sulfate 3 ML AMPUL.NEB INHALATION ×5 (07:23→22:42)
--- NOTE | 2019-12-25 08:08 | PN_ITS ---
Patient Problems: Active and Suspected Problems COPD with acute exacerbation (Acute) Subjective: Chief complaint: Follow-up after admission for acute COPD exacerbation and hypoxia. Patient seen and examined. No acute events overnight. He reported mild improvement of his shortness of breath, still having wheezing, difficulty ex pectorating sputum. Remains on 2 L of oxygen. His vital signs are stable. - Physical Exam Vitals/I&O's: Vital Signs Temp Pulse Resp BP Pulse Ox 98.3 F 67 16 143/69 H 95 12/25/19 03:13 12/25/19 07:23 12/25/19 07:23 12/25/19 06:30 12/25/19 07:23 Oxygen Flow Rate (L/min) 2 Oxygen Delivery Method Nasal Cannula Weight: 162 lb 7.691 oz Body Mass Index (BMI) 25.4 Orthostatic Vital Signs Start: 12/24/19 09:07 Freq: q24h Status: Active Protocol: Activity Type Activity Date Activity User E-Sign Co-Sign Detail Recorded Client Recorded Date Recorded By Document 12/25/19 06:30 PAL [id number] 12/25/19 06:36 PAL 12/25/19 06:30 Orthostatic Vitals Standing -Blood Pressure (90/60-120/80 mm Hg) 124/72 H -Extremity Use Right Arm -Pulse Rate (60-100 beats/min) 78 Sitting -Blood Pressure (90/60-120/80 mm Hg) 129/71 H -Extremity Use Right Arm -Pulse Rate (60-100 beats/min) 75 Lying -Blood Pressure (90/60-120/80 mm Hg) 143/69 H -Extremity Use Right Arm -Pulse Rate (60-100 beats/min) 78 Intake and Output for Last 24 Hours 12/23/19 12/24/19 12/25/19 23:59 23:59 23:59 Intake Total 2347.00 / 2347.00 1874 250 / 250 Output Total 1989 125 / 125 Balance 357.00 / 357.00 1874 125 / 125 General: Alert, Oriented x3, Cooperative, No apparent distress HEENT: Atraumatic, PERRLA, EOMI, Normocephalic Oral: Moist Mucosa, No Gingival or Mucosal Lesions/ Ulcerations Neck: Supple, No JVD, Negative Carotid Bruits, Trachea Midline, Thyroid Normal Size and Texture Lungs: No rhonchi, No rales, Diminished, - - Decreased breath sounds bilateral, significant bilateral expiratory wheezes. Cardiovascular: Regular rate, Regular Rhythm, Normal S1, Normal S2, PMI Normal Abdomen: Bowel Sounds Present, Soft, Non Tender, Non-Distended, No Hepato- splenomegaly Extremities: No clubbing, No cyanosis, No edema Skin: No rashes, No breakdown Lymphatic: No Cervical, Supraclavicular, or Inguinal Adenopathy Neurological: Cranial nerves II-XII grossly intact, Neuro grossly intact Psych/Mental Status: Normal Affect, Appropriate Microbiology Past 72 Hours 12/23/19 03:40 Mucosa - Nasopharyngeal Respiratory Panel (PCR) - Final Rhinovirus 12/22/19 23:30 Mucosa - Nose Influenza Types A,B Direct FA (JEVON) - Final Current Medications Acetaminophen (Tylenol) 650 mg PO Q6H PRN PRN PRN Reason: Pain Score 1-10 /Temp>100.7 Acetylcysteine (Mucomyst) 800 mg INHALATION Q8H.RT [facility] Last Admin: 12/25/19 07:23 Dose: Not Given Documented by: Albuterol Sulfate (Ventolin Aerosols) 2.5 mg INHALATION Q2H PRN PRN PRN Reason: Shortness of Breath/Wheezing Albuterol/Ipratropium (Duoneb) 3 ml INHALATION Q4HWA.RT [facility] Last Admin: 12/25/19 07:23 Dose: 3 ml Documented by: Bupropion HCl (Wellbutrin Sr (150mg Tablets)) 150 mg PO DAILY [facility] Last Admin: 12/24/19 09:15 Dose: 150 mg Documented by: Enoxaparin Sodium (Lovenox) 40 mg SC DAILY [facility] Last Admin: 12/24/19 09:15 Dose: 40 mg Documented by: Glucagon () 1 mg IM .X1 PRN PRN Reason: Hypoglycemia Guaifenesin (Mucinex) 1,200 mg PO BID [facility] Last Admin: 12/24/19 21:42 Dose: 1,200 mg Documented by: Sodium Chloride () 250 mls @ 15 mls/hr IV .[id number] PRN PRN Reason: Saline Flush Last Infusion: 12/23/19 22:57 Dose: 0 mls/hr Documented by: Sodium Chloride () 250 mls @ 15 mls/hr IV .[id number] PRN PRN Reason: Additional IVPB Infusion Dextrose (Dextrose 10%-Water) 250 mls @ 999 mls/hr IV .Q16M PRN; Protocol PRN Reason: HYPOGLYCEMIA Mesalamine (Lialda) 2.4 gm PO DAILYCM [facility] Last Admin: 12/24/19 09:14 Dose: 2.4 gm Documented by: Methylprednisolone (Solu-Medrol) 40 mg IV Q8 [facility] Last Admin: 12/25/19 06:16 Dose: 40 mg Documented by: Nicotine (Nicoderm Cq (Pbkc)) 21 mg TRANSDERM. DAILY [facility] Last Admin: 12/24/19 09:15 Dose: 21 mg Documented by: Ondansetron HCl (Zofran) 4 mg IV Q8H PRN PRN PRN Reason: Nausea Sodium Chloride () 10 - 40 ml IV UD PRN PRN Reason: SALINE FLUSH Last Admin: 12/25/19 06:17 Dose: 10 ml Documented by: Zolpidem Tartrate (Ambien (Generic)) 5 mg PO QHS PRN PRN PRN Reason: SLEEP Last Admin: 12/25/19 00:01 Dose: 5 mg Documented by: Medical Necessity - Tobacco Use Smoking Status: Current every day smoker Tobacco Use: Cigarettes Assessment/Plan All Active Problems COPD with acute exacerbation (Acute) This is a 69 years old male patient presented to the emergency room because of worsening shortness of breath and wheezing as well as cough and he was found to have acute COPD exacerbation with hypoxia. #1 acute COPD exacerbation/hypoxia: Triggered by rhinovirus. He is on IV Solu- Medrol and bronchodilators. He completed 3 days of IV Zithromax. Mucomyst inhalation was not given because of bronchospasm. Chest x-ray reviewed, no acute infiltrate consolidation. He remained on 2 L of oxygen, minimal improvement. Plan to continue same treatment, ambulate, possible DC home tomorrow. #2 recurrent near syncopal episodes: This has been going on for some time, none after admission. Triggered by cough. EKG was unremarkable. Orthostatic vitals were normal. Plan: 2D echocardiogram. #3 ulcerative colitis: Stable, no complaints. Continue mesalamine. #4 depression: Stable, continue Wellbutrin. #5 tobacco abuse: NicoDerm patch. #6 DVT prophylaxis: Subcu Lovenox. This note was generated with [employer] software. It may contain incorrect words, spelling, and punctuation that were not noted in checking the note before signing. Code Visit Inpatient E&M: 63628 Subs Hosp L2
--- NOTE | 2019-12-25 08:13 | ECHOD_ITS ---
Reason For Study: Syncope Procedure This was a 2D Doppler, Color Flow transthoracic echocardiogram. Exam performed portable in patient room. Left Ventricle Normal LV size. Left ventricular systolic function is normal. The estimated ejection fraction is 65 %. Stage 1 diastolic dysfunction. No regional wall motion abnormalities noted. Right Ventricle Normal RV size. Normal systolic function. Atria Normal left atrium. Normal right atrium. Mitral Valve Normal mitral valve. Mild (1+) mitral valve insufficiency. Tricuspid Valve Normal tricuspid valve. Aortic Valve Trisinus/trileaflet aortic valve. Pulmonic Valve Normal pulmonic valve. Great Vessels Normal aortic root. The pulmonary artery is normal size. Normal inferior vena cava. Pericardium/Pleural No pericardial effusion. MMode/2D Measurements & Calculations LVIDd: 4.2 cm IVSd: 0.93 cm Ao root diam: 2.8 cm LVIDs: 2.0 cm LVPWd: 0.97 cm RVDd: 2.9 cm FS: 53.3 % LAV(MOD-bp): 28.1 ml LVAd ap4: 18.0 cm2 SV(MOD-sp4): 28.0 ml LAV(MOD-bp) Indexed: 15.2 ml/m2 EDV(MOD-sp4): 38.9 ml LAV(MOD-sp2): 28.8 ml EDV(sp4-el): 40.5 ml LAV(MOD-sp4): 24.2 ml LVAs ap4: 8.4 cm2 ESV(MOD-sp4): 10.8 ml ESV(sp4-el): 10.6 ml EF(MOD-sp4): 72.1 % EF(sp4-el): 73.8 % SV(sp4-el): 29.9 ml LA A4 area: 11.9 cm2 LA dimension(2D): 3.4 cm RA A4 area: 11.1 cm2 Doppler Measurements & Calculations MV E max dash: 105.0 cm/sec Lat Peak E' Dash: 15.5 cm/sec Med Peak E' Dash: 6.9 cm/sec MV A max dash: 114.9 cm/sec E/E' lat: 6.8 E/E' med: 15.2 MV E/A: 0.91 Ao V2 max: 171.5 cm/sec LV V1 max: 136.2 cm/sec PA V2 max: 93.6 cm/sec Ao max P.8 mmHg LV V1 max P.4 mmHg Ao V2 mean: 115.8 cm/sec Ao mean P.0 mmHg Ao V2 VTI: 31.4 cm Interpretation Summary Normal LV size. Left ventricular systolic function is normal. The estimated ejection fraction is 65 %. Stage 1 diastolic dysfunction. Ordering Physician: Merle Rosenberg Referring Physician: Kimberly Pa Performed By: Corry Cordero, ASIYA, RVT
[2019-12-25] MEDS: Enoxaparin 40 MG/0.4 ML Syringe SC (09:01)
[2019-12-25] MEDS: buPROPion (SR) 150 MG Tablet.SA PO (09:01)
[2019-12-25] MEDS: guaiFENesin 1,200 MG Tablet 1200 MG PO ×2 (09:01→21:05)
[2019-12-25] MEDS: Mesalamine 1.2 GM Tablet 2.4 GM PO (09:01)
[2019-12-26 02:58] VITALS: PULSE 78
[2019-12-26 03:00] VITALS: BP 142/53; PULSE 80; RESP 20; TEMP 36.9; O2SAT 97
[2019-12-26] MEDS: Benzonatate 100 MG Capsule PO (05:44)
[2019-12-26 07:12] VITALS: O2SAT 90
[2019-12-26] MEDS: Mesalamine 1.2 GM Tablet 2.4 GM PO (08:11)
[2019-12-26 08:22] VITALS: O2SAT 90; O2SAT 92
[2019-12-26 09:00] VITALS: BP 139/79; PULSE 87; RESP 18; TEMP 36.7; O2SAT 93
[2019-12-26] MEDS: buPROPion (SR) 150 MG Tablet.SA PO (09:21)
[2019-12-26] MEDS: Enoxaparin 40 MG/0.4 ML Syringe SC (09:21)
--- NOTE | 2019-12-26 10:24 | PCM.DC ---
- Discharge Diagnoses Current Active Problems: Current Active and Chronic Problems COPD with acute exacerbation (Acute) You will use the following diet at home:: No restrictions Your food should be the consistency of: Regular Your liquids should be the consistency of: Regular/Thin Discharge Activity: Return to Normal Activity Weight Bearing Status: Full weight bearing Allergies/Adverse Reactions: Allergies Penicillins [PCN] Allergy (Verified 12/22/19 23:09) Unknown Medications to take at Discharge Albuterol Sulfate [Proventil Hfa] 6.7 gm IH Q6H PRN PRN 12/22/19 Budesonide/Formoterol 160/4.5 [Symbicort 160/4.5 Mcg Inhaler (SP)] 2 puff INHALATION BID 12/22/19 Bupropion HCl [Wellbutrin Sr] 150 mg PO DAILY 12/22/19 Eszopiclone [Lunesta] 1 mg PO QHS PRN PRN 12/22/19 Mesalamine [Lialda] 2.4 gm PO DAILY 12/22/19 Tiotropium [place] [Spiriva Respimat] 2 puff PO DAILY 12/22/19 Nicotine [Nicoderm Cq] 21 mg TRANSDERM. DAILY #30 patch 12/26/19 Prednisone 10 mg PO UD #30 tab 12/26/19 proMETHazine/codeine soln [Phenergan with Codeine oral solution] 5 - 10 ml PO Q4H PRN PRN 7 Days #240 ml 12/26/19 The following prescriptions were given: Nicotine [Nicoderm Cq] 21 mg TRANSDERM. DAILY #30 patch Transmission Status: Pending to [facility] proMETHazine/codeine soln [Phenergan with Codeine oral solution] 5 - 10 ml PO Q4H PRN PRN 7 Days #240 ml PRN Reason: Cough Prescription Printed Prednisone 10 mg PO UD #30 tab Prescription Printed Primary Care Physician: Kimberly Pa NP-C [Primary Care Provider] - Please follow up with your Primary Care Physician in: 1-2 weeks Test Results: Test results from this visit will be discussed in further detail at your follow-up appointment, if applicable.
--- NOTE | 2019-12-26 11:32 | PHA.DC.MC ---
Pharmacy Service has performed discharge medication reconciliation and counseling for this patient. 1. PREDNISONE 10MG TABLET - 40MG PO DAILY WITH FOOD X 3 DAYS, THEN 30MG PO X 3 DAYS, THEN 20MG PO X 3 DAYS, THEN 10MG PO X 3 DAYS 2. NICOTINE 21MG TOPICALLY DAILY 3. CODEINE/PROMETHAZINE 5-10ML PO Q4H PRN COUGH X 7 DAYS The patient's discharge medication list was reviewed for discrepancies and discrepancies were resolved. Home Medications Albuterol Sulfate [Proventil Hfa] 6.7 gm IH Q6H PRN PRN 12/22/19 Budesonide/Formoterol 160/4.5 [Symbicort 160/4.5 Mcg Inhaler (SP)] 2 puff INHALATION BID 12/22/19 Bupropion HCl [Wellbutrin Sr] 150 mg PO DAILY 12/22/19 Eszopiclone [Lunesta] 1 mg PO QHS PRN PRN 12/22/19 Mesalamine [Lialda] 2.4 gm PO DAILY 12/22/19 Tiotropium [place] [Spiriva Respimat] 2 puff PO DAILY 12/22/19 Nicotine [Nicoderm Cq] 21 mg TRANSDERM. DAILY #30 patch 12/26/19 Prednisone 10 mg PO UD #30 tab 12/26/19 proMETHazine/codeine soln [Phenergan with Codeine oral solution] 5 - 10 ml PO Q4H PRN PRN 7 Days #240 ml 12/26/19 The patient was counseled on the following discharge medications and changes in medications for homegoing were reviewed. The Reason for Use, instructions for use, and potential side effects were reviewed for all new medications. The patient's questions regarding all of their medications were answered. The patient was able to verbally demonstrate an understanding of their discharge medications.
--- NOTE | 2019-12-27 12:57 | CASEMGMT ---
[facility] PHONE CALL DC DATE: 12.26.2019 DC Disposition: Home Diagnosis on Discharge: COPD exacerbation LACE/STRATA: 09/18 Attempted call, no answer and no machine with name identifier. Phil REYNOSO RN ACM
--- NOTE | 2019-12-29 18:36 | DS.PCM_ITS ---
Discharge Date and Diagnosis Date of Admission: 12/23/19 Date of Discharge: 12/26/19 - Primary Discharge Diagnosis #1 COPD exacerbation with hypoxia-exacerbated by rhinovirus upper respiratory infection #2 rhinovirus upper respiratory tract infection #3 ulcerative colitis #4 chronic depression #5 cough syncope Hospital Course and Treatment Operations: None Procedures: None Summary of Care Provided: The patient is a 69 year old M was seen in the emergency room at [facility] with a chief complaint of shortness of breath, work-up in the emergency room included a chest x-ray which showed emphysematous changes but no acute process. Patient received DuoNeb aerosol treatments and was given IV Solu-Medrol but his oxygen saturation dropped to 87% with ambulation and the p atient was admitted to PCU for COPD exacerbation. Patient was treated with IV corticosteroids and aggressive aerosol treatments. Patient's respiratory panel resulted positive for rhinovirus, patient was able to be weaned off his oxygen to room air. On 12/26/2019, patient was seen and examined: On examination he appeared in good health and spirits. Vital signs as documented. Skin warm and dry and without overt rashes. Neck without JVD. Lungs-slight expiratory wheezes bilaterally were noted. Heart exam notable for regular rhythm, normal sounds and absence of murmurs, rubs or gallops. Abdomen unremarkable and without evidence of organomegaly, masses, or abdominal aortic enlargement. Extremities nonedematous. Neuro: Cranial nerves II through XII are grossly intact, no focal motor deficits were noted, sensation to light touch and pinprick intact. Psych: Patient is alert and oriented x3, he does not appear anxious or depressed. On 12/26/2019, patient was discharged to home in stable condition - Physical Exam Vitals/I&O's: Vital Signs Temp Pulse Resp BP Pulse Ox 98.1 F 87 18 139/79 H 93 12/26/19 09:00 12/26/19 09:00 12/26/19 09:00 12/26/19 09:00 12/26/19 09:00 Oxygen Flow Rate (L/min) 2 Oxygen Delivery Method Room Air Weight: 73.7 kg Body Mass Index (BMI) 25.4 Orthostatic Vital Signs Start: 12/24/19 09:07 Freq: q24h Status: Active Protocol: Activity Type Activity Date Activity User E-Sign Co-Sign Detail Recorded Client Recorded Date Recorded By Document 12/25/19 06:30 PAL [id number] 12/25/19 06:36 PAL 12/25/19 06:30 Orthostatic Vitals Standing -Blood Pressure (90/60-120/80) 124/72 H -Extremity Use Right Arm -Pulse Rate (60-100) 78 Sitting -Blood Pressure (90/60-120/80) 129/71 H -Extremity Use Right Arm -Pulse Rate (60-100) 75 Lying -Blood Pressure (90/60-120/80) 143/69 H -Extremity Use Right Arm -Pulse Rate (60-100) 78 Discharge Activity: Return to Normal Activity Weight Bearing Status: Full weight bearing Home Medications: Medications to take at Discharge Albuterol Sulfate [Proventil Hfa] 6.7 gm IH Q6H PRN PRN 12/22/19 Budesonide/Formoterol 160/4.5 [Symbicort 160/4.5 Mcg Inhaler (SP)] 2 puff INHALATION BID 12/22/19 Bupropion HCl [Wellbutrin Sr] 150 mg PO DAILY 12/22/19 Eszopiclone [Lunesta] 1 mg PO QHS PRN PRN 12/22/19 Mesalamine [Lialda] 2.4 gm PO DAILY 12/22/19 Tiotropium [place] [Spiriva Respimat] 2 puff PO DAILY 12/22/19 Nicotine [Nicoderm Cq] 21 mg TRANSDERM. DAILY #30 patch 12/26/19 Prednisone 10 mg PO UD #30 tab 12/26/19 proMETHazine/codeine soln [Phenergan with Codeine oral solution] 5 - 10 ml PO Q4H PRN PRN 7 Days #240 ml 12/26/19 Following Prescrptions Were Given to Patient: Nicotine [Nicoderm Cq] 21 mg TRANSDERM. DAILY #30 patch Transmission Status: Received by [facility] proMETHazine/codeine soln [Phenergan with Codeine oral solution] 5 - 10 ml PO Q4H PRN PRN 7 Days #240 ml PRN Reason: Cough Prescription Printed Prednisone 10 mg PO UD #30 tab Prescription Printed Primary Care Physician: Kimberly Pa, CHANDLERC [Primary Care Provider] - Please follow up with your Primary Care Physician in: 1-2 weeks Please Follow Up With: Kimberly Pa NP-C Disposition: Home Minutes spent on discharge:: 31 Patient Condition:: Stable Medical Necessity - Tobacco Use Smoking Status: Current every day smoker Tobacco Use: Cigarettes Meaningful Use Info Meaningful Use Diagnoses (Choose all that apply): None applicable Code Visit Inpatient E&M: 01567 Disch Hosp
== END 2019-12-26 11:37 | disposition home or self-care (01) | DRG 191 ==
LOC: ED 12-23 02:03 → PCU 12-23 02:49
PROVIDERS: Admitting Provider Hospitalist; Emergency Provider Emergency Medicine; PCP Nurse Practitioner; Visit Provider Internal Medicine
DX: J44.1 Chronic obstructive pulmonary disease with (acute) exacerbation (principal); K51.90 Ulcerative colitis, unspecified, without complications; J06.9 Acute upper respiratory infection, unspecified; R09.02 Hypoxemia; B97.89 Other viral agents as the cause of diseases classified elsewhere; Z79.51 Long term (current) use of inhaled steroids; Z79.52 Long term (current) use of systemic steroids; Z79.899 Other long term (current) drug therapy; F17.210 Nicotine dependence, cigarettes, uncomplicated; F32.9 Major depressive disorder, single episode, unspecified; G47.00 Insomnia, unspecified; R55 Syncope and collapse
CPT/HCPCS: 36415; 36600; 71046; 80048; 82803; 84484; 85025; 87633; 87804; 93005; 93306; 94640; 94667; 94668; 99251; 99285; 99406; J7030; J7050; A4216; G0463

== ENCOUNTER → 2020-04-18 | Outpatient (CLI) | payer MEDICARE, OTHER, SELFPAY ==
[2019-12-23 02:41] VITALS: BMI 25.4
--- NOTE | 2020-04-18 12:57 | PR.ITP_ITS ---
General Information - General Information Admitting Diagnosis: COPD Gold Classification:: GOLD 3: Severe - Education/Goals Barriers to Learning: None Individual Counseling: Initial Assessment: Dyspnea control techniques at rest, activity, and ADLs, Inhaled and respiratory medications, Exacerbation prevention & management, Panic & depression management Patient Goals: Breathe better: Initial Assessment, Increase endurance/stamina: Initial Assessment, Stop smoking/maintain cessation: Initial Assessment - REFERRAL TO SMOKING CESSATION PROGRAM - [facility] Exercise - Initial Assessment - Visit Date of Eval: 04/18/20 - Problem/Goals Problems: Deconditioning, No regular exercise, Knowledge deficit exercise guidelines, Knowledge deficit exercise safety Goals:: Aerobic exercise 30-60 mins x 9 weeks, MO: 2-3/wk - Physician Prescribed Exercise Modalities: Treadmill, Rower, Airdyne, NuStep Frequency (days/week): 3 Duration (Minutes):: 30-45 Intensity: 60-80% of age predicted maximum heart rate reserve METs - Progression: 0.5-1.0 MET, RPE 11-14 WEEK: 3.0 Target Heart Rate:: 100-130 - Plan Plan and Plan to Review:: Benefits of exercise, Core components of exercise, How to measure dyspnea level, How to monitor dyspnea level, Exercise intensity, Exercise safety guideline, Home exercise guidelines, Fuentes: 3-4/11-13 Disease Management - Initial - Problems/Goals-Hypoxemia Hypoxemia Problems:: Poor knowledge of O2 use/safety Hypoxemia Goals:: Hypoxemia managed - Problems/Goals-Medications Medication Goals: Adherence to prescribed medications, Correct technique/timing & care of MDI, DPI, nebulizer, and spacer. - Problems/Goals-Bronchial Hygiene Bronchial Hygiene Problems:: Respiratory infection Prevention/Management Bronchial Hygiene Goals:: Pt describes signs and symptoms of infection. - Initial Assessment SpO2:: 96 FiO2:: 21 Does pt report taking home meds as prescribed?: Yes Medications: Yes MDI, Yes DPI, No Spacer Patient Reports:: No cough - Plans Hypoxemia Plan:: Monitor SpO2 rest & with exercise, Train O2 safety & systems Reviewed prescribed medications:: Purpose, Schedule, Side effects, Importance of compliance Instruct correct technique/timing & care:: MDI, DPI, Nebulizer, Return demo use of inhaler Bronchial Hygiene Plan: Controlled cough, Vibratory PEP device, Role of exercise in secretion clearance, Hydration, Hand hygiene, Signs/symptoms to report: Psychosocial - Initial Assess - Problems/Goals Problems: Depression, Anxiety, Impaired Q.O.L. Psychosocial Goals: Improved psychosocial coping skills., Verbalizes coping strategies., Adequate treatment of depression., Improved Q.O.L. - Psychosocial Test Depression:: Self report, Anxiety, Impaired QOL Referred to MD for counseling:: No - Plan Reviewed screening results: Yes Instructions given regarding:: Benefits of exercise, Relaxation techniques, Training in coping strategies Stress management: On meds currently, Receiving counseling Tobacco - Initial Assessment - Program Goals Tobacco Program Goals: Complete smoking cessation. Attend education classes. Improve Knowledge Test score - Learning Barriers Learning Barriers: Ready to Learn - Family Support Do you have family support?: Yes - Tobacco Use Tobacco Use: Cigarettes Do you use smokeless tobacco?: No - Intervention Smoking Cessation Referral:: Yes Individual Education/Counseling:: Yes Education Schedule Given:: Yes - Education Gave Education Materials For:: Tobacco Triggers, Pulmonary Disease, Risk Factors, Breathing Techniques, Medical Compliance, Pulmonary A&P, Exacerbation Signs & Symptoms, Stress & Relaxation Nutrition/Wt Mgmt - Initial - Problems/Goals Goals: BMI 21-25 - Weight Management Admit Height:: 5 ft 7 in Admit Weight:: 162 lb Admit BMI:: 25.3 - Diabetes Diabetes:: No Insulin: No Do you monitor your blood sugar at home?: No - Intervention Referral to dietitian:: No Referral to Diabetic Clinic:: No Will attend diet classes:: Yes - Plan Nutrition Plan: Yes Review BMI or WC & identify target wt & strategies for wt control, Yes Nutrition education class:, Yes Medication education class [Pred nisone]:, Yes Physical activity log: Patient Health Questionnaire Initial Assessment 1. Little interest or pleasure in doing things: Nearly every day 2. Feeling down, depressed, or hopeless: Several days 3. Trouble falling or staying asleep, or sleeping too much: Several days 4. Feeling tired or having little energy: More than half the days 5. Poor appetite or overeating: Several days 6. Feeling bad about yourself -- or that you are a failure or have let yourself or your family down: More than half the days 7. Trouble concentrating on things, such as reading the newspaper or watching television: More than half the days 8. Moving or speaking so slowly that other people could have noticed. Or the opposite - being so fidgety or restless that you have been moving around a lot more than usual: Several days 9. Thoughts that you would be better off , or of hurting yourself in some way: Not at all How difficult have these problems made it for you to do your work, take care of things at home, or get along with other people?: Somewhat difficult - TREATED FOR DEPRESSION DISORDER, DEPRESSION & ANXIETY Total Score: 13 COPD Knowledge Test Initial COPD is a lung disease that:: Makes it hard to breathe & gets worse over time In the [place] the term COPD describes 2 main lung conditions:: Emphysema & chronic bronchitis The most common lung irritant that causes COPD is:: Cigarette smoke Common signs and symptoms of COPD include:: An ongoing cough/cough that produces a large amount of mucus, & SOB If you have COPD, what steps can you take?: All of the above Swelling of the ankles is common in COPD:: False Fatigue [tiredness] is common in COPD:: True Wheezing is common in COPD:: True Crushing chest pain is common in COPD:: False Rapid weight loss is common in COPD:: True Breathlessness is a normal response to exercise: True Exercise should be avoided if it makes you short of breath: True All bronchodilators act within 10 minutes: True A spacer device increases the medication to the lungs: True Annual flu vaccine is recommended for pts w/lung disease: True COPD Knowledge Test Total Score:: 12 COPD Assessment Test [CAT] - Questions Never cough = 0, Cough all the time = 5: 3 No phlegm = 0, Chest full of phlegm = 5: 2 No chest tightness = 0, Chest very tight = 5: 3 No breathless w/exertion = 0, Very breathless w/exertion = 5: 4 No limitations w/activity = 0, Very limited w/activity = 5: 3 Confident leaving home = 0, Not at all confident = 5: 3 Sleep soundly = 0, Don't sleep soundly = 5: 3 Lots of energy = 0, No energy at all = 5: 4 Total CAT score:: 25 Self-Efficacy Initial Assessment We would like to know how confident you are in doing certain activities. Please select your confidence level for:: Select your confidence level for the following using the scale 1-10 where 1 is not at all confident and 10 is totally confident. Your score is the average of all 6 responses. Fatigue: How confident are you that you can keep the fatigue caused by your disease from interfering with the things you want to do? Select Number: 3 Physical Discomfort or Pain: How confident are you that you can keep the physical discomfort or pain of your disease from interfering with the things you want to do? Select Number: 3 Emotional Distress: How confident are you that you can keep the emotional distress caused by your disease from interfering with the things you want to do? Select Number: 5 Other Symptoms or Health Problems: How confident are you that you can keep other symptoms or health problems from interfering with the things you want to do? Select Number: 4 Different Tasks and Activities: How confident are you that you can do the different tasks and activities needed to manage your health condition so as to reduce your need to see a doctor? Select Number: 6 Medication: How confident are you that you can do things other than just taking medication to reduce how much your illness affects your everyday life? Select Number: 7 Total Score:: 4 Nutrition Survey - Nutrition Survey Instructions Scoring Instructions: Scoring is as follows: Yes = 1 points. No = 0 point. Patient score that is >/=12 is considered to be at potential nutritional risk and could benefit from a referral to a registered dietitian. - Nutrition Survey Initial Have you lost >10 lbs over the past 2 months without trying?: No Are you following a special diet at home for diabetes, low fat, or low salt?: No Are you interested in meeting with a dietitian for help understanding your diet?: No Do you eat less than 3 meals a day?: No Do you eat fatty meats (gonzalez, sausage, ribs, etc), fried foods, desserts, large amounts of salad dressings, margarine, butter, or cheese most days?: Yes Do you have food allergies? [Enter types in comment field]: No Do you eat in restaurants more than 3 times a week?: Yes Do you season food with salt, seasoning salt, or garlic salt?: Yes Do you used canned, boxed, frozen meals, or soups, seasoning packets?: Yes - IMPAIRED FASTING GLUCOSE Total Score:: 4
--- NOTE | 2020-04-18 12:57 | PR.HP_ITS ---
History of Present Illness Arrival date:: 04/18/20 Arrival time:: 13:01 Date of Referral:: 01/25/20 Date of Evaluation: 04/18/20 - Evaluation postponed due to COVID 19 Referring Physician: DR. JACQUI POON Primary Diagnosis: COPD GOLD-III SEVERE [facility]C Breathless Scale: When is the patient short of breath? Y/N Grade: Description of Breathlessness: 0 I only get breathless with strenuous exercise. 1 I get short of breath when hurrying on level ground or walking up a slight hill. 2 On level ground, I walk slower than people of the same age because of breathless, or have to stop for breath when walking at my own pace. 3 I stop for breath after walking 100 yards or after a few minutes on level ground. 4 I am too breathless to leave the house or I am breathless when dressing. Respiratory Problems: Yes: Fatigue, Able to Speak in Full Sentences, Dyspnea with Activity Home Medications: Home Medications Albuterol Sulfate [Proventil Hfa] 6.7 gm IH Q6H PRN PRN 12/22/19 Budesonide/Formoterol 160/4.5 [Symbicort 160/4.5 Mcg Inhaler (SP)] 2 puff INHALATION BID 12/22/19 Bupropion HCl [Wellbutrin Sr] 150 mg PO DAILY 12/22/19 Eszopiclone [Lunesta] 1 mg PO QHS PRN PRN 12/22/19 Mesalamine [Lialda] 2.4 gm PO DAILY 12/22/19 azithromycin 250 mg tablet See Rx Instructions PO .COMPLEX #6 tab 01/25/20 prednisone 10 mg tablet 10 mg PO QDAY #30 tab 01/25/20 rosuvastatin 20 mg sprinkle capsule 20 mg PO DAILY 01/25/20 tiotropium bromide 2.5 mcg/actuation mist for inhalation 2 puff INHALATION DAILY 01/25/20 Allergies/Adverse Reactions: Allergies Penicillins [PCN] Allergy (Verified 01/25/20 10:25) Unknown - Secretions Thick:: No Thin:: No Cough:: Yes Hx of Sleep Apnea: Yes Do you snore loudly (louder than talking or can be heard through closed doors)?: Yes - DOES NOT WEAR CPAP or BiPAP FOR SLEEP APNEA Do you often feel tired/ fatigued/ sleepy during daytime?: Yes Has anyone observed you stop breathing during sleep?: Yes History of Hypertension (for STOP score): Yes STOP Results: Positive Medical Utilization Do you use a peak flow meter at home?: No Do you use a spacer device with your inhalers?: No Number of hospital visits in the last year?: 1 Number of emergency room visits in the last year?: 0 Do you see your physician on a regular schedule?: Yes How often?: NEEDED Comments:: JUST STARTED WITH DR. POON FOLLOWING RECENT HOSPITAL ADMISSION. SCHEDULED TO FOLLOW-UP WITH HIM THIS MONTH. Advanced Directives - Advanced Directives Power of Hand Buffer: Yes Living Will: Yes Advance Directives Information Provided: No Advance Directives on File: No DNR Order?:: No - MOLST See MOLST form: No Past Medical History Medical History: Past Medical History (Last Updated 01/25/20 @ 10:50 by Mary Lopez) Ulcerative colitis (Acute) K51.90 Bronchitis (Acute) J40 history of thoricautomy (Acute) Dyspnea (Acute) R06.00 SOB (shortness of breath) (Acute) R06.02 Headache (Acute) R51 Fatigue (Acute) R53.83 Polycythemia (Acute) D75.1 Vitamin D deficiency (Acute) E55.9 Hypercholesteremia (Acute) E78.00 Mixed hyperlipidemia (Acute) E78.2 Smoker (Acute) F17.200 depression disorder (Acute) Depression (Acute) F32.9 Anxiety (Acute) F41.9 Insomnia (Acute) G47.00 DOC (obstructive sleep apnea) (Acute) G47.33 Bilateral carotid artery stenosis (Acute) I65.23 COPD (chronic obstructive pulmonary disease) (Chronic) J44.9 Chronic ulcerative colitis (Chronic) K51.90 Cervical radiculopathy (Acute) M54.12 Neck pain (Acute) M54.2 Hematuria (Acute) R31.9 Impaired fasting glucose (Acute) R73.01 Elevated high sensitivity C-reactive protein (Acute) R79.82 Lung nodule (Acute) R91.1 Abnormal EKG (Acute) R94.31 Surgical History: Past Surgical History (Last Reviewed 01/25/20 @ 10:51 by Mary Lopez) Hx of tonsillectomy (Resolved) Z90.89 History of thoracotomy (Resolved) Z98.890 History of repair of rotator cuff (Resolved) Z98.890 Family History: Family History (Last Reviewed 01/25/20 @ 10:26 by Mary Lopez) Mother Panic disorder Father Heart disease Hypertension - Current/ Previous Services Pulmonary Rehab:: No Social History - Smoking History Smoking Status: Light Smoker (<10/day) Years Smokin Packs Smoked per Day: 2 - SIGNIFICANTLY HAVE CUT DOWN TO 6 CIGARETTES PER DAY Hx Tobacco Use: Yes Hx Smoking Exposure: Yes - Alcohol Use Alcohol Usage: Yes - Substance Abuse Hx Substance Use: No - Occupation Occupation (List type of work in comments):: Retired - Hobbies, Recreation, Social Activities Hobbies: Other - FISHING Recreational Activities: I am able to engage in most, but not all activities Functioning ADL/IADL - Current Ability Current Ability: Independent Self-Care (e.g.,grooming, dressing, & bathing), Independent Ambulation, Independent Transfer, Independent Household tasks (e.g., light meal prep, laundry, shopping) - Pt Functioning Prior to Problem Prior Functioning: Self-Care (e.g.,grooming, dressing, & bathing): Independent, Ambulation: Independent, Transfer: Independent, Household tasks (e.g., light meal prep, laundry, shopping): Independent Social Environment - Status Marital Status: - Current Living Arrangements Living Environment:: Spouse - Children How many children do you have?: 3 Do any of your children live nearby?: Yes - [address] [facility] ONE IN [place] - Safety Do you feel safe in your surroundings?: Yes - Assistance Do you need any assistance at home?: NO Review of Systems Review of Systems: Right click = Denies (Slash). Left click = Reports (Poarch) Respiratory: Reports: Cough - DRY COUGH, SOB upon Exertion, Wheezing, Appetite, Normal, Fatigue, Sleep, Normal - ON LUNESTA. Denies: SOB at Rest, Sputum production, Dizziness/Lightheadedness, Sexual changes Is Patient Pain Free?: Yes Pain Location: none Pain Level: 0/10 Risk Factor Assessment - Chief Complaint Chief Complaint: COPD GOLD III SEVERE - Vital Signs Temperature: 97.6 F Pulse Rate: 68 Pulse Rhythm: Regular Respiratory Rate: 20 Pulse Ox: 96 - ROOM AIR Blood Pressure: 132/68 - Diabetes Nutrition Referral for Diabetes: No - Obesity Height: 5 ft 7 in Weight:: 162 lb Weight in Pounds: 162.0 lbs Weight Source: Estimated by Patient Body Mass Index (BMI): 25.3 Nutritional Referral for Obesity: No - Physical Activity Physical Inactivity: Recreational activity - Risk Stratification Risk Guidelines: Lowest Risk: Risk Factor for Diabetes, Risk Factor for Obesity, Moderate Risk: Risk Factor for Hypertension, Risk Factor for Sedentary Lifestyle, Risk Factor for Depression - H/O DEPRESSION DISORDER, DEPRESSION & ANXIETY, Highest Risk: Risk Factor for Smoking - For Smoking Smoking Risk Guidelines: Smoking Low Risk: None or quit greater than 6 months ago. Smoking Moderate Risk: Smoker or quit 6 months or less ago. Smoking High Risk: Smoker - For Dyslipidemia Dyslipidemia Risk Guidelines: Low Risk: Moderate Risk: High Risk: 15-25% fat 25.1-29% fat >/= 30% fat. <7% sat fat 7-9% sat fat >9% sat fat. <150 mg chol 150-299 mg chol >/= 300 mg chol. LDL <100 LDL 100-129 LDL >/= 130. Chol/HDL ratio <5.0 Chol/HDL ratio 5.0-6.0 Chol/HDL ratio >6.0. Triglycerides <100 Triglycerides 100- 149 Triglycerides >/= 150 - For Diabetes Mellitus Diabetes Risk Guidelines: Diabetes Low Risk: HgA1c <6.5% and/or FBG <120. Diabetes Moderate Risk: HgA1c 6.6-7.9% and/or FBG 120-180. Diabetes High Risk: HgA1c >/= 8% and/or FBG >180 - For Obesity/Overweight Obesity/Overweight Risk Guidelines: Obesity Low Risk: BMI <25.0. Obesity Moderate Risk: BMI 25-29.9. Obesity High Risk: BMI >/= 30.0 - For Hypertension Hypertension Risk Guidelines: Hypertension Low Risk: Systolic <120 and Diastolic <80. Hypertension Moderate Risk: Systolic 120-139 and Diastolic 80-89. Hypertension High Risk: Systolic >/= 140 and Diastolic >/= 90 - For Sedentary Lifestyle Sedentary Lifestyle Risk Guidelines: Sedentary Lifestyle Low Risk: >/= 1,500 kcal/week. Sedentary Lifestyle Moderate Risk: 700-1,499 kcal/week. Sedentary Lifestyle High Risk: < 700 kcal/week - For Depression Depression Risk Guidelines: Depression Low Risk: Not clinically depressed. Depression Moderate Risk: Mildly depressed. Depression High Risk: Clinically depressed Motivation - Motivation to Participate On a scale of 1 to 10, how prepared are you to commit to attending program?: 7 What do you see as barriers to successfully being able to complete the program?: NONE What do you see as the benefits of succesfully completing the program? In other words, what do you hope to get out of participating in the program?: EXTEND MY LIFE, DO WHAT I AM SUPPOSED TO DO TO MAKE HEALTHIER CHANGES. Are there issues you are dealing with that will interfere with completing the program?: NONE Do you have a spouse or signficant other, family or friends who will help support you to complete the program?: YES
[2020-04-18 13:25] VITALS: BP 132/68; PULSE 68; RESP 20; TEMP 36.4; O2SAT 96; BMI 25.3
[2020-04-18 14:08] VITALS: O2SAT 96; BMI 25.3
== END | disposition home or self-care (01) ==
LOC: PR 12:52
PROVIDERS: PCP Nurse Practitioner; Visit Provider Internal Medicine Critical Care Medicine
DX: J44.9 Chronic obstructive pulmonary disease, unspecified (principal)

== ENCOUNTER → 2020-05-04 10:48 | Outpatient (CLI) | payer MEDICARE, OTHER, SELFPAY ==
[2019-12-23 02:41] VITALS: BMI 25.4
[2020-04-18 14:08] VITALS: BMI 25.3
--- NOTE | 2020-05-04 10:49 | CT_ITS ---
STUDY: LOW DOSE CT LUNG CANCER SCREENING REASON FOR EXAM: Male, 69 years old. SCREENING/6 CIGS/DAY X 50 YR. Hx of COPD-currently doing pulmonary rehab RADIATION DOSAGE (If Supplied By Facility): CTDIvol = ( 3.02 ) mGy, DLP = ( 103.45 ) mGycm TECHNIQUE: No contrast was administered. Low dose technique was utilized (average mAS-38 and kVp 120). 1.25 mm axial source images with a slice interval of 1.25-mm were reconstructed in lung windows. 2.5 mm axial source images with a slice interval of 2.5-mm were reconstructed in lung windows. 5.0 mm axial source images with a slice interval of 5.0-mm were reconstructed in soft tissue windows. Nodule measured using lung windows on PACS and/or independent workstation with automated measurement of minimum and maximum diameter. Nodule measurement reported as average diameter rounded to the nearest whole number. Growth is defined as an increase ins size of greater than 1.5 mm. COMPARISON: Comparison is made with prior study dated February 08, 2019. NODULES: Stable 4.1 mm noncalcified nodule in the anterior aspect of the right middle lobe. Emphysema: Stable hyperinflation and emphysematous changes more prominent in the upper lobes with the bolus formation. Stable scarring at the right lung apex. Stable mild increased markings in the right middle lobe as well as in the right lower lobe suggestive of scarring. Aorta: Atherosclerotic plaque formation of the aortic arch. Coronary arteries: Coronary artery calcification. Heart: Unremarkable. Pulmonary artery: Unremarkable. Mediastinal nodes: Calcified right azygous and right hilar lymph nodes. Other chest and abdominal findings: Degenerative changes of the thoracic spine. CT/Low Dose CT Lung Screening IMPRESSION: Lung-RADS category 2 - Continue annual screening with LDCT in 12 months. IMPORTANT NOTES FOR USE: ACR Lung-RADS Version 1.0 Assessment Categories Release Date: March 13, 2014 Category: Coded 0-4 bases on nodule(s) with highest degree of suspicion. Negative screen is defined as categories 1 and 2; a positive screen is defined as categories 3 and 4. Category 3 and 4A nodules that are unchanged on interval CT should be coded as category 2, and individuals returned to screening in 12 months. Category 4X: Category 3 or 4 nodules with additional imaging findings that increase the suspicion of lung cancer, such as spiculation, GGN that doubles in size in 1 year, enlarged lymph notes, etc. Category Modifiers: S (significant finding unrelated to lung cancer) and C (prior history of treated lung cancer) may be added to the 0-4 Lung-RADS Electronically Signed: Ortega Thakur, at 12:11 EDT , Service support ,
[2020-05-04 11:00] VITALS: PULSE 60; PULSE 63; PULSE 68; PULSE 69; PULSE 71; PULSE 76; PULSE 79; O2SAT 90; O2SAT 92; O2SAT 94; O2SAT 95
--- NOTE | 2020-05-06 08:29 | PCM.PSN.6M ---
PSN 6 Minute Walk Test - 6 Minute Walk Test 6 Minute Walk Test: 6 Minute Walk Test PSN:6-Minute Walk Test Start: 05/04/20 11:37 Freq: Status: Active Protocol: [id number] Document 05/04/20 11:00 ST (Rec: 05/04/20 11:40 ST [id number]) 6 Minute Walk Test Date Performed 05/04/20 Time Performed 11:00 Height 5 ft 7 in Weight: 163 lb Weight in Pounds 163.[address]: Flavio Khoury Assistive device used: None Pre-test Oxygen Delivery Method Room Air Pulse Ox (%) 95 Pulse Rate (60-100 beats/min) 69 Dyspnea Fuentes Scale (0-10) 0 Exertion Fuentes Scale (6-20) 6 1st minute Oxygen Delivery Method Room Air Pulse Ox (%) 95 Pulse Rate (60-100 beats/min) 60 2nd minute Oxygen Delivery Method Room Air Pulse Ox (%) 92 Pulse Rate (60-100 beats/min) 63 3rd minute Oxygen Delivery Method Room Air Pulse Ox (%) 92 Pulse Rate (60-100 beats/min) 71 4th minute Oxygen Delivery Method Room Air Pulse Ox (%) 92 Pulse Rate (60-100 beats/min) 79 5th minute Oxygen Delivery Method Room Air Pulse Ox (%) 90 Pulse Rate (60-100 beats/min) 79 6th minute Oxygen Delivery Method Room Air Pulse Ox (%) 90 Pulse Rate (60-100 beats/min) 76 Dyspnea Fuentes Scale (0-10) 1 Exertion Fuentes Scale (6-20) 12 Post-test Oxygen Delivery Method Room Air Pulse Ox (%) 94 Pulse Rate (60-100 beats/min) 68 Full Laps Walked 24 Partial Lap, Number of Tiles Walked 0 Total Distance Walked (ft) 1416 - Interpretation Interpretation: The patient ambulated 1416 feet over the course of 6 minutes beginning on room air without assistive devices or breaks. Pretesting oxygen saturation was noted to be 95% on room air. With ambulation, the dayron oxygen saturation was 90%. This represents a significant exertional oxygen desaturation. - Recommendations Recommendations: There is no indication for the use of supplemental oxygen at this time. However, close interval follow-up is recommended, given the degree of oxygen desaturation noted during this study.
== END ==
PROVIDERS: PCP Nurse Practitioner; Referring Provider Internal Medicine Critical Care Medicine; Visit Provider Internal Medicine Critical Care Medicine
DX: J44.9 Chronic obstructive pulmonary disease, unspecified (principal); Z12.2 Encounter for screening for malignant neoplasm of respiratory organs; F17.210 Nicotine dependence, cigarettes, uncomplicated
CPT/HCPCS: 94618; 97150; G0297; G0424

== ENCOUNTER 2020-05-14 09:15 | Outpatient (RCR) | payer MEDICARE, OTHER, SELFPAY ==
[2020-04-18 14:08] VITALS: BMI 25.3
== END 2020-05-15 23:59 ==
LOC: PR 09:15
PROVIDERS: PCP Nurse Practitioner; Referring Provider Internal Medicine Critical Care Medicine; Visit Provider Internal Medicine Critical Care Medicine
DX: J44.9 Chronic obstructive pulmonary disease, unspecified (principal)
CPT/HCPCS: 97150; G0424

== ENCOUNTER 2020-06-15 09:15 | Outpatient (RCR) | payer MEDICARE, OTHER, SELFPAY ==
[2020-05-07 07:43] VITALS: BMI 25.7
== END 2020-06-15 23:59 ==
LOC: PR 09:15
PROVIDERS: PCP Nurse Practitioner; Referring Provider Internal Medicine Critical Care Medicine; Visit Provider Internal Medicine Critical Care Medicine
DX: J44.9 Chronic obstructive pulmonary disease, unspecified (principal)
CPT/HCPCS: 97150; G0424

== ENCOUNTER 2020-06-22 08:58 | Emergency (ER) | payer MEDICARE, OTHER, SELFPAY ==
[2020-05-07 07:43] VITALS: BMI 25.7
[2020-06-22 08:59] VITALS: BP 179/85; PULSE 78; RESP 16; TEMP 36.6; O2SAT 98; BMI 25.8
--- NOTE | 2020-06-22 09:16 | ED.DCSUM_ITS ---
History of Present Illness Chief Complaint: Upper Extremity Injury Informant: Patient Occurred: Today Mechanism/Context: Injury Onset: Today Context: Sudden Onset Timing: Continuous Quality of Pain: Sharp Location: left thumb Current Severity: Severe Maximum Severity: Severe Worsened by: movement Relieved by: nothing Associated Symptoms: Negative for: Parasthesia, Weakness, Loss of Funtion Narrative: 69-year-old [id number] male presents with a left hand injury. He was attempting to hold the elevator open for another person in his left thumb got stuck in the door. Someone helped get it out. He is having pain and swelling. No other injuries. Tetanus Immunization: Unknown Prior similar symptoms: No Recent Illness/Hospitalization: No Past Medical History - Allergies and Home Meds Allergies/Adverse Reactions: Allergies Penicillins [PCN] Allergy (Verified 06/22/20 09:00) Unknown Primary Care Physician: Kimberly Pa NP-C [Primary Care Provider] - Prior records reviewed: Yes Past Medical History: - - COPD Surgical History: - - Right thoracotomy for fungus tumor Smoking Status: Light Smoker (<10/day) - Family History Maternal Family History: Family History (Last Reviewed 05/07/20 @ 07:41 by Mary Lopez) Mother Panic disorder Father Heart disease Hypertension Family History: Reports: - - His mother fell broke her hip; developed sepsis and . Paternal Family History: Family History (Last Reviewed 05/07/20 @ 07:41 by Mary Lopez) Mother Panic disorder Father Heart disease Hypertension Family History: Reports: Heart Disease - Father had a CABG. Review of Systems All systems negative except as indicated General: Denies: Chills, Fever, Sweats Eyes: Denies: Visual changes - bilaterally, Diplopia ENT: Denies: Rhinorrhea, Sore throat Cardiovascular: Denies: Chest pain, Palpitations Respiratory: Denies: Dyspnea, Cough, Dyspnea on exertion Gastrointestinal: Denies: Abdominal pain, Nausea, Vomiting, Diarrhea, Melena, Hematochezia Genitourinary: Denies: Dysuria, Hematuria, Frequency Musculoskeletal: Reports: Swelling, Extremity Pain. Denies: Back pain Skin: Denies: Rash, Wounds Neurological: Denies: Headache, Weakness, Numbness Physical Exam Vital Signs/Narrative: Vital Signs Temp Pulse Resp BP Pulse Ox 06/22/20 08:59 97.8 F 78 16 179/85 H 98 Inital Vital Signs reviewed: Yes Left Hand: - - Patient has an abrasion over the left thumb over the IP joint. No laceration. He is having swelling diffusely. He is able to flex and extend at the IP joint actively normally. He has normal active range of motion in all directions at his MCP joint. His capillary refill and sensation are normal. There is no nail injury. There is no other bony tenderness of the hand noted. General: Well nourished, Well developed Head: Normocephalic, Atraumatic Eyes: Perrl, EOMI ENT: No Trauma, Moist Mucous Membranes Neck: Nontender, Full ROM Cardiovascular: Regular rate, Regular rhythm, No murmurs Respiratory: No distress, CTA bilaterally, Chest nontender Abdomen: Soft, Nontender, Nondistended, Normal bowel sounds Back: Nontender Skin: Normal color, No rash Neurological: Alert, Oriented x3, Cranial nerves II-XII grossly intact, Normal Strength, Normal Sensation Psychological: Normal affect Diagnostic/Tx/Re-eval Impressions Hand X-Ray 06/22/20 09:28 IMPRESSION: Soft tissue swelling. Electronically Signed: Ortega Thakur, at 9:55 EDT , Service support , 06/22/20 09:28 Hand Min 3 Views [RAD] Stat - Medical Decision Making Patient declined analgesia. His tetanus was updated. He has a small abrasion. There is no laceration. X-ray is unremarkable. No acute fracture or dislocation is noted. Repeat exam patient was advised to rest ice and elevate. He states to use [id number] medication for analgesia. He will be placed in a finger splint for comfort. He is given return precautions. He will be discharged. ED Disposition - Plan for ED Patient: Disposition: Home or Assisted Living Diagnosis: Contusion of left thumb without damage to nail, Abrasion of left thumb Instructions: ED Abrasion, ED Crush Injury Finger No Fx Referrals: Kimberly Pa, [employer] [facility] [Primary Care Provider] -
--- NOTE | 2020-06-22 09:28 | RAD_ITS ---
STUDY: X-RAY - LEFT HAND REASON FOR EXAM: Male, 69 years old. Pt tried to stop elevator and got left thumb stuck, pain in proximal left thumb TECHNIQUE: 3 view(s) of the hand. COMPARISON: None. FINDINGS: Normal radiocarpal articulation. Normal distal radioulnar joint. Normal visualized carpal bones. Normal carpal articulations Normal carpometacarpal articulation of the thumb. Normal second through fifth carpometacarpal joints. Normal metacarpi. Normal metacarpophalangeal joint of the thumb. Normal interphalangeal joint of the thumb. Normal proximal and distal phalanges of the thumb. Normal metacarpophalangeal joints of the second through fifth fingers. Normal proximal and distal interphalangeal joints of the second through fifth fingers. Normal phalanges of the second through fifth fingers. Soft tissue swelling. RAD/Hand Min 3 Views IMPRESSION: Soft tissue swelling. Electronically Signed: Ortega Thakur, at 9:55 EDT , Service support ,
[2020-06-22] MEDS: Diphth,Pertuss(Acell),Tet Vac 0.5 ML Vial IM (09:37)
== END 2020-06-22 10:52 | disposition home or self-care (01) ==
PROVIDERS: Emergency Provider Physician Assistant Medical; PCP Nurse Practitioner
DX: S60.012A Contusion of left thumb without damage to nail, initial encounter (principal); S60.312A Abrasion of left thumb, initial encounter; F17.200 Nicotine dependence, unspecified, uncomplicated; J44.9 Chronic obstructive pulmonary disease, unspecified; X58.XXXA Exposure to other specified factors, initial encounter
CPT/HCPCS: 29130; 73130; 90471; 90715; 99282

== ENCOUNTER 2020-07-16 09:15 | Outpatient (RCR) | payer MEDICARE, OTHER, SELFPAY ==
[2020-05-07 07:43] VITALS: BMI 25.7
--- NOTE | 2020-06-19 08:06 | PCM.PR.TP ---
Exercise - 60-Day Assessment - Physician Prescribed Exercise Modalities: Treadmill, Airdyne, NuStep Intensity: 60-80% of age predicted maximum heart rate reserve Aerobic Exercise [30-60 min 3-7x/week]:: Progressing Target heart rate: 100-130 Fuentes-13 - Home Exercise Home Exercise:: Yes Frequency:: DAILY WALKING/STRENGTH TRAINING Time (minutes):: 30 Disease Management - 60-Day - Hypoxemia Reassessment: Demonstrates knowledge of O2 Rx at rest, Demonstrates knowledge of O2 Rx with exercise - Medications Taking medications 100% of the time:: Met Medication reassessment: Yes Pt demonstrates correct technique timing for MDI, Yes Pt demonstrates correct technique timing for DPI, Yes Pt demonstrates correct technique timing for NEB, Yes Pt demonstrates correct technique timing for spacer - Bronchial Hygiene Bronchial Hygiene Plan: Yes Pt demo correct for device, Yes Pt demo correct for improved hydration, Yes Pt demo correct for hand hygiene, Yes Pt demo correct for verbalize when to call MD Psychosocial - 60-Day - Assessment Depression reassess: Management of stress: Met, Management of depression: Met, Practicing interventions: Met Tobacco - 60-Day Assessment - Program Goals Tobacco Program Goals: Complete smoking cessation. Attend education classes. Improve Knowledge Test score - Stage of Change Stages of Change:: Action - Learning Barriers Learning Barriers: Participates in education - Family Support Do you have family support?: Yes - Tobacco Use Tobacco Use: Non-smoker - Intervention Smoking Cessation Referral:: No Individual Education/Counseling:: No Education Schedule Given:: Yes - Education Gave Education Materials For:: Pulmonary Disease, Risk Factors, Breathing Techniques, Medical Compliance, Pulmonary A&P, Exacerbation Signs & Symptoms, Stress & Relaxation Nutrition/Wt Mgmt - 60-Day - Weight Management Weight Assessment:: Wt loss 1-2 lbs per week Weight:: 165 lb Weight Goals Progress:: Progressing Patient Health Questionnaire 60-Day Re-eval Assessment 1. Little interest or pleasure in doing things: Several days 2. Feeling down, depressed, or hopeless: Not at all 3. Trouble falling or staying asleep, or sleeping too much: Not at all 4. Feeling tired or having little energy: Not at all 5. Poor appetite or overeating: Not at all 6. Feeling bad about yourself -- or that you are a failure or have let yourself or your family down: Several days 7. Trouble concentrating on things, such as reading the newspaper or watching television: Not at all 8. Moving or speaking so slowly that other people could have noticed. Or the opposite - being so fidgety or restless that you have been moving around a lot more than usual: Not at all 9. Thoughts that you would be better off , or of hurting yourself in some way: Not at all How difficult have these problems made it for you to do your work, take care of things at home, or get along with other people?: Not difficult at all Total Score: 2 COPD Assessment Test [CAT] - Questions Never cough = 0, Cough all the time = 5: 3 No phlegm = 0, Chest full of phlegm = 5: 2 No chest tightness = 0, Chest very tight = 5: 2 No breathless w/exertion = 0, Very breathless w/exertion = 5: 3 No limitations w/activity = 0, Very limited w/activity = 5: 3 Confident leaving home = 0, Not at all confident = 5: 2 Sleep soundly = 0, Don't sleep soundly = 5: 2 Lots of energy = 0, No energy at all = 5: 2 Total CAT score:: 19 Self-Efficacy 60-Day Re-eval Assessment We would like to know how confident you are in doing certain activities. Please select your confidence level for:: Select your confidence level for the following using the scale 1-10 where 1 is not at all confident and 10 is totally confident. Your score is the average of all 6 responses. Fatigue: How confident are you that you can keep the fatigue caused by your disease from interfering with the things you want to do? Select Number: 9 Physical Discomfort or Pain: How confident are you that you can keep the physical discomfort or pain of your disease from interfering with the things you want to do? Select Number: 10 Emotional Distress: How confident are you that you can keep the emotional distress caused by your disease from interfering with the things you want to do? Select Number: 10 Other Symptoms or Health Problems: How confident are you that you can keep other symptoms or health problems from interfering with the things you want to do? Select Number: 10 Different Tasks and Activities: How confident are you that you can do the different tasks and activities needed to manage your health condition so as to reduce your need to see a doctor? Select Number: 10 Medication: How confident are you that you can do things other than just taking medication to reduce how much your illness affects your everyday life? Select Number: 10 Total Score:: 9
== END 2020-07-16 23:59 ==
LOC: PR 09:15
PROVIDERS: PCP Nurse Practitioner; Referring Provider Internal Medicine Critical Care Medicine; Visit Provider Internal Medicine Critical Care Medicine
DX: J44.9 Chronic obstructive pulmonary disease, unspecified (principal)
CPT/HCPCS: 97150; G0424

== ENCOUNTER 2020-07-18 06:41 | Outpatient (RCR) | payer MEDICARE, OTHER, SELFPAY | END 2020-08-15 23:59 | LOC: PR 06:41 | PROVIDERS: PCP Nurse Practitioner; Referring Provider Internal Medicine Critical Care Medicine; Visit Provider Internal Medicine Critical Care Medicine | DX: J44.9 Chronic obstructive pulmonary disease, unspecified (principal) | CPT/HCPCS: 97150; G0424 ==

== ENCOUNTER → 2020-10-23 08:27 | Outpatient (CLI) | payer MEDICARE, OTHER, SELFPAY ==
[2020-05-07 07:43] VITALS: BMI 25.7
--- NOTE | 2020-10-23 16:24 | PFTCOMP ---
COMPLETE PULMONARY FUNCTION TEST INTERPRETATION Brief HPI: Patient is a 70 year old male, currently under the care of myself, who presents to [facility] for complete pulmonary function tests secondary to diagnosis of COPD. Respiratory therapist reports good effort and reproducible results. Interpretation: Forced expiration spirometry shows a very severe large airways obstructive ventilatory defect with an FEV1 of 33% predicted. There is a significant bronchodilator response in FVC by strict ATS criteria. Spirograms are of good quality and plateau slowly, indicating slowly emptying areas of the lungs. The respiratory flow volume loop shows decreased expiratory flow rates at all lung volumes consistent with airway obstruction. Lung volumes by body plethysmography show a normal total lung capacity at 4.84 L, 83% predicted. All other lung volumes are within normal limits. Diffusion capacity by carbon monoxide is decreased at 61% predicted. The airway resistance is elevated. Compared to previous pulmonary function tests from 11/25/2018, there is been a significant improvement in air trapping with hyperinflation. Impression: Partially reversible very severe large airways obstructive ventilatory defect with symmetric reduction diffusion capacity, but some improvement compared to previous testing.
== END ==
PROVIDERS: PCP Nurse Practitioner; Referring Provider Nurse Practitioner Acute Care; Visit Provider Nurse Practitioner Acute Care
DX: J44.9 Chronic obstructive pulmonary disease, unspecified (principal)
CPT/HCPCS: 94060; 94726; 94729

== ENCOUNTER → 2021-01-02 10:16 | Outpatient (CLI) | payer MEDICARE, OTHER, SELFPAY ==
[2020-10-30 09:18] VITALS: BMI 25.7
== END ==
PROVIDERS: PCP Nurse Practitioner; Referring Provider Internal Medicine Critical Care Medicine; Visit Provider Internal Medicine Critical Care Medicine
DX: J44.9 Chronic obstructive pulmonary disease, unspecified (principal)
CPT/HCPCS: 94762

== ENCOUNTER → 2021-04-02 07:43 | Outpatient (CLI) | payer MEDICARE, OTHER, SELFPAY ==
[2020-10-30 09:18] VITALS: BMI 25.7
--- NOTE | 2021-04-02 07:44 | CDU_ITS ---
Reason For Study: carotid stenosis Rt. Velocities/BP Lt. Velocities/BP Prox CCA 83.9/16.0 cm/sec. Prox CCA 103.4/23.9 cm/sec. Mid CCA 79.9/14.7 cm/sec. Mid CCA 63.0/17.3 cm/sec. Dist CCA 60.4/12.1 cm/sec. Dist CCA 53.9/14.7 cm/sec. Prox ICA 48.6/14.7 cm/sec. Prox ICA 33.3/15.4 cm/sec. Mid ICA 86.5/30.4 cm/sec. Mid ICA 72.1/27.7 cm/sec. Dist ICA 78.6/26.5 cm/sec. Dist ICA 78.7/26.7 cm/sec. Rt. ICA/CCA = 1.1. Lt. ICA/CCA = 1.2. Prox ECA 74.7/12.1 cm/sec. Prox ECA 106.5/11.5 cm/sec. Rt. Vert. 44.7/14.7 cm/sec. Lt. Vert. 36.2/8.8 cm/sec. Right Extracranial There is intimal thickening but no significant atherosclerotic plaque noted in the right common carotid artery. There is heterogeneous, irregular atherosclerotic plaque noted in the right internal carotid artery. There is intimal thickening but no significant atherosclerotic plaque noted in the right external carotid artery. Antegrade flow is noted in the right vertebral artery. Left Extracranial There is intimal thickening but no significant atherosclerotic plaque noted in the left common carotid artery. There is heterogeneous, irregular atherosclerotic plaque noted in the left internal carotid artery. There is heterogeneous, irregular atherosclerotic plaque noted in the left external carotid artery. Antegrade flow is noted in the left vertebral artery. Procedure Carotid Duplex [id number]. This is a Carotid Duplex examination using B-mode, color flow and specral Doppler. The exam was diagnostic. Exam performed in department. VL/Carotid Duplex Ultrasound Interpretation Summary Mild (<50%) stenosis right extracranial internal carotid. Mild (<50%) stenosis left extracranial internal carotid. Flow within the vertebral arteries is antegrade bilaterally. Ordering Physician: Kimberly Pa Performed By: Hiram Willard RVT
== END ==
PROVIDERS: PCP Nurse Practitioner; Referring Provider Nurse Practitioner; Visit Provider Nurse Practitioner
DX: I65.23 Occlusion and stenosis of bilateral carotid arteries (principal)
CPT/HCPCS: 93880

== ENCOUNTER → 2021-05-08 07:42 | Outpatient (CLI) | payer MEDICARE, OTHER, SELFPAY ==
[2020-10-30 09:18] VITALS: BMI 25.7
--- NOTE | 2021-05-08 07:45 | CT_ITS ---
HISTORY: Current Smoker;40 years EXAMINATION: CT Low Dose CT Chest for Lung Cancer Screening TECHNIQUE: Helically acquired images were obtained of the chest. Low-dose imaging technique performed with sagittal and coronal reformats. A radiation dose optimization technique was used for this scan. IV Contrast dosage and agent: None. COMPARISON: Low-dose unenhanced chest CT from 05/04/20. Other comparison exams from 2015, 2016, 2018 and 2019. FINDINGS: Hyperexpanded lungs with moderate to severe centrilobular emphysematous changes again noted. Stable 4.5 mm noncalcified nodule within anterior right middle lobe along the undersurface of minor fissure. Stable punctate calcified nodules/granulomas within inferior right upper lobe. No new nodules, pulmonary mass or airspace consolidation demonstrated. Stable mild linear scarring right mid-to lower lung with mildly elevated right hemidiaphragm. No pneumothorax or pleural effusion. Benign calcified right hilar and right paratracheal lymph nodes. No pathologic adenopathy. Heart normal size. No thoracic aortic aneurysm. Coronary arterial and aortic atherosclerotic calcifications noted. No acute findings within the imaged upper abdomen. Stable small right renal cyst. Calcified granulomas within liver and spleen. No acute fracture or suspicious osseous lesion. CT/Low Dose CT Lung Screening IMPRESSION: Stable exam. Pulmonary emphysema with small 4.5 mm right middle lobe perifissural nodule, and sequela of previous granulomatous infection. Lung RADS category 2. Continued annual screening with LDCT in 12 months. Individualized dose optimization techniques were used for this CT. at 0510 Reported and signed by: Keny Dobbs MD Electronically Signed: Keny Dobbs MD at 5:08 EDT Tel , Service support ,
== END ==
PROVIDERS: PCP Nurse Practitioner; Referring Provider Nurse Practitioner Acute Care; Visit Provider Nurse Practitioner Acute Care
DX: Z87.891 Personal history of nicotine dependence (principal); Z12.2 Encounter for screening for malignant neoplasm of respiratory organs
CPT/HCPCS: 71271

== ENCOUNTER → 2022-05-09 | Outpatient (CLI) | payer MEDICARE, OTHER, SELFPAY ==
--- NOTE | 2022-05-09 07:13 | CT_ITS ---
STUDY: CT CHEST WITHOUT CONTRAST- LOW DOSE SCREENING PROTOCOL REASON FOR EXAM: Male, 71 years old. Current smoker. 30 pack per year history. No current symptoms of lung cancer or pulmonary infection. Shared decision-making with referring PCP documented in patient''s record. RADIATION DOSAGE (If Supplied By Facility): CTDIvol = ( 3.02 ) mGy, DLP = ( 102.32 ) mGycm TECHNIQUE: Low dose screening CT examination performed from the base of the neck to the upper abdomen. Sagittal and coronal reformatted images performed. Sagittal and coronal MIP images provided. The measurements provided are average, rounded measurements per ACR guidelines. COMPARISON: 05/08/2021 FINDINGS: Mild emphysema. There is no change in the 4 mm noncalcified granuloma in the right middle lobe of the lungs are image 118. No new noncalcified nodule or mass. There is no demonstrated pleural abnormality. Normal heart and pericardium. There are calcifications of the coronary arteries. Normal mediastinum. Normal hilar regions. Normal unenhanced pulmonary arteries. Normal aorta arch and descending thoracic aorta. Normal osseous structures. There is no demonstrated abnormality of the visualized upper abdomen. CT/Low Dose CT Lung Screening IMPRESSION: 1. No significant indeterminate incidental findings requiring additional imaging. 2. Incidental findings include 4 mm right middle lobe noncalcified granuloma. ASSESSMENT CATEGORY: LungRADS 2 - Benign Appearance or Behavior. Continue annual screening with LDCT in 12 months, per established ACR guidelines. Electronically Signed: Lev Wells MD at 9:47 EDT ,
== END | disposition home or self-care (01) ==
LOC: CT 07:08
PROVIDERS: Referring Provider Nurse Practitioner Acute Care; Visit Provider Nurse Practitioner Acute Care
DX: Z87.891 Personal history of nicotine dependence (principal)
CPT/HCPCS: 71271

== ENCOUNTER → 2022-09-24 | Outpatient (CLI) | payer MEDICARE, OTHER, SELFPAY ==
[2022-09-24 06:56] LABS: Bacteria 0 SEEN /hpf (None Seen); Mucous, Urine 0 SEEN /hpf (<or=2+); Red Blood Cells-Urine 0 SEEN /hpf (0-5); Squamous Epithelial Cells - UA 0 SEEN /hpf (0-5); White Blood Cells 0 SEEN /hpf (0-5)
[2022-09-24 07:28] LABS: Absolute Lymphocyte Count 2.75 X10^3/uL (0.83-4.51); Absolute Neutrophil Count 5.9 X10^3/uL (2.0-7.7); Basophil# 0.06 X10^3/uL; Basophil% 0.6 % (0-1); Eosinophil# 0.18 X10^3/uL; Eosinophils% 1.8 % (0-5); Lymphocyte # 2.75 X10^3/ul (0.83-4.51); Lymphocyte % 28.1 % (19-41); Mean Corp Hgb Conc 32.1 g/dL (32-36); Mean Corpuscular Hgb 30.9 pg (27.0-32.0); Mean Corpuscular Volume 96.4 fL (80-94); Mean Platelet Vol. 8.9 fl (6.2-12.0); Monocyte# 0.88 X10^3/uL; NRBC Flagged by Analyzer 0 % (0-5); Neutrophil # 5.85 X10^3/uL (2.7-7.7); Neutrophil % 59.8 % (47-70); Platelet Count 265 K/mm3 (150-450); RBC Distribution Width CV 12.8 % (11.6-14.6); RBC Distribution Width SD 45.4 fl (35.1-43.9); RET-HE 35.2 pg (30-35); Red Blood Count 5.85 M/mm3 (4.6-6.2); Reticulocyte Count 1.57 % (0.5-1.5); White Blood Count 9.8 K/mm3 (4.4-11.0)
[2022-09-24 07:53] LABS: Color, Urine Yellow (Yellow); Glucose, Dipstick Normal (Normal); Ketone-Dipstick Negative (Negative); Leukocyte Esterase-Dipstick Negative /ul (Negative); Nitrite-Dipstick Negative (Negative); Occult Blood-Urine Negative /ul (Negative); Protein-Dipstick Negative (Negative); Urine Bilirubin Dipstick Negative (Negative); Urine Clarity Clear (Clear); Urine Urobilinogen Normal (Normal)
[2022-09-24 07:56] LABS: AST(SGOT) 17 U/L (15-37); Alanine Aminotransfer ALT/SGPT 25 U/L (16-61); Albumin, Serum 3.3 g/dL (3.2-5.0); Alkaline Phosphatase 79 U/L (45-117); Anion Gap 7 (5-15); BUN 17 mg/dL (7-18); BUN/Creat Ratio 14.9 RATIO (10-20); Chloride 104 mmol/L (98-107); Cholesterol 166 mg/dL (200); Creatinine, Serum 1.14 mg/dL (0.70-1.30); EST Glomerular Filtration Rate 68 mL/min (>60); Est Glom Filt Rate - Afr Amer 82 mL/min (>60); Globulin 3.4 g/dL (2.2-4.2); Glucose 87 mg/dL (74-106); High Density Lipoprotein 44 mg/dL; Potassium 4.2 mmol/L (3.5-5.1); Protein, Total 6.7 g/dL (6.4-8.2); Sodium Level 142 mmol/L (136-145); Triglycerides 160 mg/dL; Very Low Density Lipoprotein 32 mg/dL (5-40)
[2022-09-24 09:03] LABS: Hematocrit 56.4 % (40-54); Hemoglobin 18.1 g/dL (13.0-16.5)
[2022-09-24 09:11] LABS: Vitamin D,25 Hydroxy 22.8 ng/mL
[2022-09-24 09:13] LABS: Erythrocyte Sedimentation Rate 15 mm/hr (0-20)
[2022-09-25 09:43] LABS: Pathologist Review Reviewed
== END | disposition home or self-care (01) ==
PROVIDERS: PCP Nurse Practitioner Family; Referring Provider Nurse Practitioner Family; Visit Provider Nurse Practitioner Family
DX: D75.1 Secondary polycythemia (principal); R60.0 Localized edema; E78.00 Pure hypercholesterolemia, unspecified; E55.9 Vitamin D deficiency, unspecified
CPT/HCPCS: 36415; 80053; 80061; 81001; 82306; 85025; 85045; 85652

== ENCOUNTER → 2022-09-30 | Outpatient (CLI) | payer MEDICARE, OTHER, SELFPAY ==
[2022-09-30 08:15] VITALS: PULSE 66; PULSE 69; PULSE 77; PULSE 82; PULSE 85; PULSE 86; PULSE 87; O2SAT 90; O2SAT 91; O2SAT 94; O2SAT 95; O2SAT 96
--- NOTE | 2022-10-02 13:15 | WT_ITS ---
PSN 6 Minute Walk Test 6 Minute Walk Test 6 Minute Walk Test: 6 Minute Walk Test PSN:6-Minute Walk Test Start: 09/30/22 08:25 Freq: Status: Active Protocol: RESP.6MINW Document 09/30/22 08:15 (Rec: 09/30/22 08:28 JR [id number]) 6 Minute Walk Test Date Performed 09/30/22 Time Performed 08:15 Height 5 ft 6 in Weight: 160 lb Weight in Pounds 160.[address]: Flavio Khoury Assistive device used: None Pre-test Oxygen Delivery Method Room Air Pulse Ox (%) 95 Pulse Rate (60-100 beats/min) 66 Dyspnea Fuentes Scale (0-10) 0 Exertion Fuentes Scale (6-20) 6 1st minute Oxygen Delivery Method Room Air Pulse Ox (%) 94 Pulse Rate (60-100 beats/min) 77 2nd minute Oxygen Delivery Method Room Air Pulse Ox (%) 91 Pulse Rate (60-100 beats/min) 82 3rd minute Oxygen Delivery Method Room Air Pulse Ox (%) 91 Pulse Rate (60-100 beats/min) 85 4th minute Oxygen Delivery Method Room Air Pulse Ox (%) 90 Pulse Rate (60-100 beats/min) 86 5th minute Oxygen Delivery Method Room Air Pulse Ox (%) 90 Pulse Rate (60-100 beats/min) 87 6th minute Oxygen Delivery Method Room Air Pulse Ox (%) 90 Pulse Rate (60-100 beats/min) 87 Dyspnea Fuentes Scale (0-10) 3 Exertion Fuentes Scale (6-20) 11 Post-test Oxygen Delivery Method Room Air Pulse Ox (%) 96 Pulse Rate (60-100 beats/min) 69 Full Laps Walked 23 Partial Lap, Number of Tiles Walked 30 Total Distance Walked (ft) 1387 Interpretation Interpretation: The patient ambulated 1387 feet over the course of 6 minutes beginning on room air without assistive devices. Pretesting oxygen saturation was noted to be 95% on room air. With ambulation, the dayron oxygen saturation was 90%. This rep resents a significant exertional oxygen desaturation. Recommendations Recommendations: There is no indication for the use of supplemental oxygen at this time. However, close interval follow-up is recommended, given the degree of oxygen desaturation noted during this study.
== END | disposition home or self-care (01) ==
LOC: PSN 08:01
PROVIDERS: PCP Nurse Practitioner Family; Referring Provider Nurse Practitioner Acute Care; Visit Provider Nurse Practitioner Acute Care
DX: J44.9 Chronic obstructive pulmonary disease, unspecified (principal)
CPT/HCPCS: 94618

== ENCOUNTER → 2022-11-21 | Outpatient (CLI) | payer MEDICARE, OTHER, SELFPAY | END | disposition home or self-care (01) | LOC: PSN 13:21 | PROVIDERS: PCP Nurse Practitioner Family; Visit Provider Nurse Practitioner Acute Care | DX: R06.00 Dyspnea, unspecified (principal) | CPT/HCPCS: 87804; 87807; C9803 ==

== ENCOUNTER → 2022-12-10 | Outpatient (CLI) | payer MEDICARE, OTHER, SELFPAY ==
--- NOTE | 2022-12-11 10:25 | PFT ---
INTRODUCTION: The patient is a 72-year-old male who presents for pulmonary function studies secondary to a diagnosis of COPD. Respiratory therapy reported good patient effort. Bronchodilators were used during testing. INTERPRETATION: Forced expiration spirometry demonstrates the presence of a very severe large airways obstructive ventilatory defect. There was a significant response to aerosolized bronchodilators. Spirograms are of fair quality but do not plateau indicating slow emptying of the lungs. Body plethysmography was performed and revealed an elevated RV to 145% of predicted, indicative of underlying air trapping. Diffusing capacity by single breath CO is reduced to 64% of predicted. IMPRESSION: Partially reversible very severe large airways obstructive ventilatory defect with associated air trapping and mild reduction in diffusing capacity.
== END | disposition home or self-care (01) ==
LOC: SL 08:15
PROVIDERS: PCP Nurse Practitioner Family; Referring Provider Internal Medicine Critical Care Medicine; Visit Provider Internal Medicine Critical Care Medicine
DX: D75.1 Secondary polycythemia (principal); J44.9 Chronic obstructive pulmonary disease, unspecified
CPT/HCPCS: 94060; 94726; 94729; 94762

== ENCOUNTER → 2023-05-28 | Outpatient (CLI) | payer MEDICARE, OTHER, SELFPAY ==
--- NOTE | 2023-05-28 07:12 | CT_ITS ---
EXAM: CT CHEST WITHOUT INTRAVENOUS CONTRAST CLINICAL INDICATION: Screening TECHNIQUE: Helically acquired images were obtained of the chest without intravenous contrast. This CT exam was performed using one or more of the following dose reduction techniques: automated exposure control, adjustment of the mA and/or kV according to patient size, and/or use of iterative reconstruction technique. COMPARISON: No relevant prior studies available. FINDINGS: LUNGS AND PLEURAL SPACES: Stable irregular 4 mm nodule within the right middle lobe. Series 2 image 119. Mild emphysematous changes. No pleural effusion or thickening. No acute airspace disease. HEART: Coronary artery calcifications. Heart size is normal. No pericardial effusion. MEDIASTINUM: Benign calcified mediastinal and right hilar lymph nodes. Esophagus is unremarkable. No hiatal hernia. THYROID: Unremarkable. No thyroid lesions. BONES/JOINTS: Unremarkable. No suspicious lytic or blastic abnormality. VASCULATURE: See above. CT/Low Dose CT Lung Screening IMPRESSION: 1. Mild emphysematous changes. 2. Stable small 4 mm nodule in the right middle lobe. 3. Coronary artery calcifications. Lung-RADS score: 2S - Benign Appearance or Behavior. Additional clinically significant or potentially clinically significant findings are described. Recommend continued annual screening with a low-dose CT (LDCT) in 12 months. Electronically Signed: Matt Schmidt MD at 7:49 EDT ,
== END | disposition home or self-care (01) ==
LOC: CT 06:54
PROVIDERS: PCP Nurse Practitioner Family; Referring Provider Internal Medicine Critical Care Medicine; Visit Provider Internal Medicine Critical Care Medicine
DX: Z12.2 Encounter for screening for malignant neoplasm of respiratory organs (principal); F17.210 Nicotine dependence, cigarettes, uncomplicated
CPT/HCPCS: 71271

== ENCOUNTER → 2024-05-30 | Outpatient (CLI) | payer MEDICARE, OTHER, SELFPAY ==
--- NOTE | 2024-05-30 07:26 | CT_ITS ---
STUDY: LOW DOSE CT LUNG CANCER SCREENING REASON FOR EXAM: Male, 73 years old. smoking RADIATION DOSAGE (If Supplied By Facility): CTDIvol = ( 3.02 ) mGy, DLP = ( 97.42 ) mGycm TECHNIQUE: No contrast was administered. Low dose technique was utilized (average mAS-38 and kVp 120). 1.25 mm axial source images with a slice interval of 1.25-mm were reconstructed in lung windows. 2.5 mm axial source images with a slice interval of 2.5-mm were reconstructed in lung windows. 5.0 mm axial source images with a slice interval of 5.0-mm were reconstructed in soft tissue windows. COMPARISON: 05/28/2023 Emphysema: Mild emphysema. No change in a 4 mm noncalcified nodule, subpleural right middle lobe lungs on image 122 consistent with a noncalcified granuloma or scar. No new noncalcified nodule or mass. Endobronchial lesion: None Aorta: Some calcified plaque in the aortic arch but no aortic aneurysm. CORONARY ARTERIES: Coronary artery calcification is seen. Heart: No cardiomegaly. Pulmonary artery: Normal Mediastinal nodes: Calcified consistent with prior granulomatous disease. Other chest and abdominal findings: Elevated right hemidiaphragm. CT/Low Dose CT Lung Screening IMPRESSION: Lung-RADS category 2 - Continue annual screening with LDCT in 12 months. IMPORTANT NOTES FOR USE: ACR Lung-RADS Version 1.1 Assessment Categories Release Date: 2018 Category: Coded 0-4 bases on nodule(s) with highest degree of suspicion. Negative screen is defined as categories 1 and 2; a positive screen is defined as categories 3 and 4. Category 3 and 4A nodules that are unchanged on interval CT should be coded as category 2, and individuals returned to screening in 12 months. Category 4X: Category 3 or 4 nodules with additional imaging findings that increase the suspicion of lung cancer, such as spiculation, GGN that doubles in size in 1 year, enlarged lymph notes, etc. Category Modifiers: S (significant finding unrelated to lung cancer) Electronically Signed: Lev Wells MD at 9:03 EDT ,
== END | disposition home or self-care (01) ==
LOC: CT 07:24
PROVIDERS: PCP Nurse Practitioner Family; Referring Provider Nurse Practitioner Acute Care; Visit Provider Nurse Practitioner Acute Care
DX: F17.210 Nicotine dependence, cigarettes, uncomplicated (principal)
CPT/HCPCS: 71271

== ENCOUNTER → 2025-03-20 | Outpatient (CLI) | payer MEDICARE, OTHER, SELFPAY ==
--- NOTE | 2025-03-20 13:41 | ECHOD_ITS ---
Reason For Study Reason For Study: LOCALIZED EDEMA Procedure This was a 2D Doppler, Color Flow transthoracic echocardiogram. Patient refused IV for bubble study and Definity. Exam performed in department. Left Ventricle Normal size and thickness. The LV systolic function is normal. EF is 65 %. Normal diastology for age. Right Ventricle Normal right ventricle. Atria The left and right atria are normal. Hypermobile interatrial septum. Cannot rule out tiny PFO. Mitral Valve Mild (1+) mitral valve insufficiency. Tricuspid Valve Trivial tricuspid valve insufficiency. Normal pulmonary artery pressure. Aortic Valve Trisinus/trileaflet aortic valve. Pulmonic Valve The pulmonic valve is not well visualized. Great Vessels Normal sized aortic root. Pericardium/Pleural No pericardial effusion. Epicardial fat. MMode/2D Measurements & Calculations LVIDd: 4.1 cm IVSd: 1.1 cm Ao root diam: 3.2 cm LVIDs: 2.4 cm LVPWd: 1.0 cm RVDd: 3.1 cm FS: 41.1 % LAV(MOD-bp): 24.5 ml LVAd ap4: 23.6 cm2 SV(MOD-sp4): 37.2 ml LAV(MOD-bp) Indexed: 13.4 ml/m2 LVLd ap4: 7.5 cm SI(MOD-sp4): 20.3 ml/m2 LAV(MOD-sp2): 24.9 ml EDV(MOD-sp4): 61.7 ml LAV(MOD-sp4): 24.3 ml EDV(sp4-el): 63.1 ml LVAs ap4: 13.1 cm2 LVLs ap4: 6.3 cm ESV(MOD-sp4): 24.5 ml ESV(sp4-el): 23.1 ml EF(MOD-sp4): 60.3 % EF(sp4-el): 63.5 % SV(sp4-el): 40.1 ml LA A4 area: 11.5 cm2 LA dimension(2D): 2.7 cm RA A4 area: 10.6 cm2 TAPSE: 2.3 cm Time Measurements MV dec time: 0.20 sec Doppler Measurements & Calculations MV E max dash: 79.7 cm/sec Lat Peak E' Dash: 13.0 cm/sec Med Peak E' Dash: 8.9 cm/sec MV A max dash: 98.6 cm/sec E/E' lat: 6.1 E/E' med: 9.0 MV E/A: 0.81 Ao V2 max: 159.9 cm/sec LV V1 max: 129.1 cm/sec PA V2 max: 91.0 cm/sec Ao max P.2 mmHg LV V1 max P.7 mmHg TR max dash: 210.7 cm/sec TR max P.7 mmHg ECHO/Echo Complete Interpretation Summary The LV systolic function is normal. EF is 65 %. Hypermobile interatrial septum. Cannot rule out tiny PFO. Mild (1+) mitral valve insufficiency. Ordering Physician: Whitney Soni Referring Physician: Whitney Soni Performed By: Elizabeth Hamlin RDCS
== END | disposition home or self-care (01) ==
LOC: CVS 13:40
PROVIDERS: PCP Nurse Practitioner Family; Referring Provider Nurse Practitioner Family; Visit Provider Nurse Practitioner Family
DX: R60.0 Localized edema (principal)
CPT/HCPCS: 93306

== ENCOUNTER → 2025-03-25 | Outpatient (CLI) | payer MEDICARE, OTHER, SELFPAY ==
[2025-03-25 09:26] LABS: D-Dimer Quantitative (DVT/PE) 0.68 FEU/ug/m (0.27-0.49)
[2025-03-25 09:45] LABS: CPK Total, Creatine Kinase 50 U/L (24-195); Troponin T High Sensitivity 20 ng/L (<=22)
[2025-03-28 15:08] LABS: Creatine Kinase BB 0 % (0); Creatine Kinase MB 0 % (0-3); Creatine Kinase MM 100 % (97-100); Creatine Kinase,Total,Serum 59 U/L (41-331); Macro I 0 % (Not Observed); Macro II 0 % (Not Observed)
== END | disposition home or self-care (01) ==
LOC: LAB 08:55
PROVIDERS: PCP Nurse Practitioner Family; Referring Provider Internal Medicine; Visit Provider Internal Medicine
DX: R06.02 Shortness of breath (principal); R74.8 Abnormal levels of other serum enzymes; R07.9 Chest pain, unspecified
CPT/HCPCS: 36415; 82550; 82552; 84484; 85379

== ENCOUNTER → 2025-07-10 | Outpatient (CLI) | payer MEDICARE, OTHER, SELFPAY ==
[2025-07-10 11:41] LABS: CPK Total, Creatine Kinase 43 U/L (24-195)
== END | disposition home or self-care (01) ==
LOC: LABSPEC 10:22
PROVIDERS: PCP Nurse Practitioner Family; Referring Provider Nurse Practitioner Family; Visit Provider Nurse Practitioner Family
DX: R07.9 Chest pain, unspecified (principal)
CPT/HCPCS: 82550

== ENCOUNTER → 2025-07-11 | Outpatient (CLI) | payer MEDICARE, OTHER, SELFPAY ==
[2025-07-11 08:15] LABS: Red Blood Cells-Urine 0 SEEN /hpf (0-5)
[2025-07-11 10:02] LABS: Hematocrit 41.6 % (40-54); Hemoglobin 13.0 g/dL (13.0-16.5); Immature Granulocytes Count 0.020 X10^3/uL (0.0-0.0); Mean Corp Hgb Conc 31.3 g/dL (32-36); Mean Corpuscular Volume 91.8 fL (80-94); Mean Platelet Vol. 9.0 fl (6.2-12.0); NRBC Flagged by Analyzer 0 % (0-5); Platelet Count 420 K/mm3 (150-450); RBC Distribution Width CV 13.7 % (11.6-14.6); RBC Distribution Width SD 46.1 fl (35.1-43.9); Red Blood Count 4.53 M/mm3 (4.6-6.2); White Blood Count 9.7 K/mm3 (4.4-11.0)
[2025-07-11 10:07] LABS: Color, Urine Yellow (Yellow); Glucose, Dipstick Normal (Normal); Ketone-Dipstick Negative (Negative); Leukocyte Esterase-Dipstick 25 /ul (Negative); Nitrite-Dipstick Negative (Negative); Occult Blood-Urine Negative /ul (Negative); Protein-Dipstick 30 mg/dl (Negative); Specific Gravity, Urine 1.025 (1.002-1.030); Urine Bilirubin Dipstick Negative (Negative)
[2025-07-11 10:14] LABS: Mucous, Urine 2+ /hpf (<or=2+); Squamous Epithelial Cells - UA 0-5 SEEN /hpf (0-5)
[2025-07-11 10:31] LABS: AST(SGOT) 21 U/L (<=37); Alanine Aminotransfer ALT/SGPT 9 U/L (<=46); Albumin, Serum 3.6 g/dL (3.4-4.8); Alkaline Phosphatase 81 U/L (40-129); Anion Gap 13 (5-15); BUN 9 mg/dL (4-19); BUN/Creat Ratio 9.1 RATIO (10-20); Calcium,Total 9.4 mg/dL (7.6-11.0); Carbon Dioxide 29.9 mmol/L (21.0-32.0); Chloride 101 mmol/L (98-108); Globulin 2.7 g/dL (2.2-4.2); Glucose 131 mg/dL (70-99); Magnesium 2.1 mg/dL (1.5-2.2); Potassium 3.6 mmol/L (3.3-5.1)
== END | disposition home or self-care (01) ==
PROVIDERS: PCP Nurse Practitioner Family; Referring Provider Nurse Practitioner Family; Visit Provider Nurse Practitioner Family
DX: R07.9 Chest pain, unspecified (principal); I24.89 Other forms of acute ischemic heart disease; R82.90 Unspecified abnormal findings in urine; R53.83 Other fatigue
CPT/HCPCS: 36415; 80053; 81001; 83735; 85025; 87086

== ENCOUNTER 2025-08-16 14:43 | Outpatient (RCR) | payer MEDICARE, OTHER, SELFPAY ==
--- NOTE | 2025-08-16 15:44 | HP.OTEVAL ---
Patient's Visit Information Visit Information Visit Information: RAYRAY GONZALEZ is a 74 year old M, referred to Occupational Therapy by Dr. Noemy Aguillon DO, with a diagnosis of B LE lymphedema. Date of Evaluation: 08/16/25 Occupational Therapist: Rosibel Thao Subjective Subjective: This 74 year old male arrives with dx of B lymphedema. Pt states swelling started a few years ago takes lasix 40 mg a day and per pt he was taking a medication in which he has recently stopped for past week and does think his legs are doing better. Pt does not see much of a difference from lasix however has only been on for about 2 weeks. pt states legs are worse at night however is better once he gets up in the morning. pt is sleeping in the bed with legs raised. Pt states he is getting small bumps on legs which look like blisters. Pt has tried compression socks wore them on all day a few times all night for approx 1 week. Pt states it helped to shrink leg however swelling came right back. pt has stage 4 COPD. Objective Objective/Observation: pt arrives with swelling of BLE that appears to be in foot as well as lower leg -- knee and upper leg appear to be of typical size no AD for mobility ROM ROM Comments: leg range of motion WFL Lymphedema (Circumferential Measure) Mid-foot: R 27 L 27 cm Ankle: R 33.5 cm L 31.5 cm Lower calf: R 28.5 cm L 27.5 cm Largest calf: R 38 cm L 38 cm Below knee: R 32.5 cm L 33 cm Above knee: R 38.5 L 39 cm Goals Goal: Patient will demonstrate a 20% reduction in edema by discharge: Yes Goal: Patient will demonstrate adequate knowledge of self-massage by the end of the second week.: Yes Goal: Patient will demonstrate adequate knowledge of skin care and precautions by the end of the first week.: Yes Goal: Patient will demonstrate adequate knowledge of therapeutic exercises by discharge.: Yes Goal: Patient will select an appropriate compression garment and demonstrate adequate knowledge of correct donning technique, care and wearing schedule by discharge.: Yes Goal: Patient will voice understanding of need to replace compression garment every four to six months by discharge.: Yes Rehabilitation General Assessment: This 74 year old male arrives with dx of B LE lymphedema. Pt presents with swelling of BLE and appears to be getting small blisters on legs. Majority of swelling in feet, ankles and lower legs. Pt reports they feel very tight by evening. This OT provided ed on LE exercise, lymph self massage as well as compression stockings/ compression alternative including velcro closure devices with where to purchase garments. training also provided on proper skin care and precautions with ed on getting up to walk/ move at least once an hour. Pt would benefit from OT services 3-4 session within a 3 month span to provide ed and training on proper garments and how to don / doff as well a when to replace them, self massage, skin care and re measurements to assure swelling reduction. pt may benefit from pump if BLE swelling does not improve. Rehabilitation Potential: Fair Anticipated Interventions Anticipated Interventions: Education re Diagnosis, Education re Life-long lymphedema Management, Education re Skin Care and Precautions, Education re Self Massage Techniques, Education re Correct Donning Tech,Care&Wearing Sched Comp Garments and Home Program Visit Plan Frequency: 3 to 4 sessions Duration: 3 Months General Plan: LE exercise self lymph massage stockings on during the day --- to look into velcro closure devices TEXT: Thank you for the opportunity to evaluate your patient. For Medicare and Medicare HMO plans, please review the plan of care and approve it. It will need to be FAXED BACK to us at [phone] for Medicare purposes. Please let me know if there are questions or concerns regarding this plan of care. Physician Signature: Date:
--- NOTE | 2025-10-24 14:45 | HP.OT.NRP ---
Patient Information Patient Information: RAYRAY GONZALEZ was seen in my office for initial evaluation on 08/16/25. The following Plan of Care was established for this patient: POC Established Initial Frequency: 3 to 4 sessions Initial Duration: 3 Months Anticipated Interventions Anticipated Interventions: Education re Diagnosis, Education re Life-long lymphedema Management, Education re Skin Care and Precautions, Education re Self Massage Techniques, Education re Correct Donning Tech,Care&Wearing Sched Comp Garments and Home Program Last Seen Last Seen: This patient was last seen in our office 08/16/25. Pertinent comments regarding their Occupational therapy will appear below: This 75 year old male seen by OT with dx of BLE lymphedema. pt seen for initial eval then no additional visits scheduled discharge from OT caseload due to lapse in time of services. At this point I will be discontinuing this patient from occupational therapy. I would be happy to see this patient again in the future if found appropriate by the physician. Thank you! Rosibel Thao
== END 2025-08-16 19:00 | disposition home or self-care (01) ==
LOC: OT 14:43
PROVIDERS: PCP Nurse Practitioner Family; Referring Provider Internal Medicine; Visit Provider Internal Medicine
DX: I89.0 Lymphedema, not elsewhere classified (principal); R60.9 Edema, unspecified
CPT/HCPCS: 97166

== ENCOUNTER → 2025-09-08 | Outpatient (CLI) | payer MEDICARE, OTHER, SELFPAY ==
--- NOTE | 2025-09-08 12:47 | CDU_ITS ---
Reason For Study Reason For Study: Stenosis Rt. Velocities/BP Lt. Velocities/BP Prox CCA 96/14 cm/sec. Prox CCA 94/19 cm/sec. Mid CCA 63/11 cm/sec. Mid CCA 61/13 cm/sec. Dist CCA 70/10 cm/sec. Dist CCA 56/13 cm/sec. Prox ICA 63/10 cm/sec. Prox ICA 51/12 cm/sec. Mid ICA 57/18 cm/sec. Mid ICA 57/20 cm/sec. Dist ICA 73/22 cm/sec. Dist ICA 77/30 cm/sec. Rt. ICA/CCA = 1.2. Lt. ICA/CCA = 1.3. Prox ECA 110/11 cm/sec. Prox ECA 147/16 cm/sec. Rt. Vert. 41/12 cm/sec. Lt. Vert. 33/8 cm/sec. Right Extracranial There is heterogeneous, irregular atherosclerotic plaque noted in the right common carotid artery. There is heterogeneous, irregular atherosclerotic plaque noted in the right internal carotid artery. There is heterogeneous, irregular atherosclerotic plaque noted in the right external carotid artery. Antegrade flow is noted in the right vertebral artery. Left Extracranial There is heterogeneous, irregular atherosclerotic plaque noted in the left common carotid artery. There is heterogeneous, irregular atherosclerotic plaque noted in the left internal carotid artery. There is heterogeneous, irregular atherosclerotic plaque noted in the left external carotid artery. Antegrade flow is noted in the left vertebral artery. Procedure Carotid Duplex [id number]. This is a Carotid Duplex examination using B-mode, color flow and specral Doppler. Exam performed in department. VL/Carotid Duplex Ultrasound Interpretation Summary Mild (<50%) stenosis right extracranial internal carotid. Mild (<50%) stenosis left extracranial internal carotid. Patent and antegrade vertebrals bilaterally. Ordering Physician: Noemy Aguillon Referring Physician: Noemy Aguillon Performed By: Corry Cordero, ASIYA, RVT
== END | disposition home or self-care (01) ==
LOC: CVS 12:47
PROVIDERS: PCP Nurse Practitioner Family; Referring Provider Internal Medicine; Visit Provider Internal Medicine
DX: I65.23 Occlusion and stenosis of bilateral carotid arteries (principal)
CPT/HCPCS: 93880

== ENCOUNTER → 2025-11-06 | Outpatient (CLI) | payer MEDICARE, OTHER, SELFPAY ==
[2025-11-06 15:01] LABS: Hematocrit 42.5 % (40-54); Hemoglobin 13.0 g/dL (13.0-16.5); Immature Granulocytes Count 0.060 X10^3/uL (0.0-0.0); Mean Corp Hgb Conc 30.6 g/dL (32-36); Mean Corpuscular Volume 87.4 fL (80-94); Mean Platelet Vol. 9.3 fl (6.2-12.0); NRBC Flagged by Analyzer 0 % (0-5); Platelet Count 343 K/mm3 (150-450); RBC Distribution Width CV 16.2 % (11.6-14.6); RBC Distribution Width SD 51.8 fl (35.1-43.9); Red Blood Count 4.86 M/mm3 (4.6-6.2); White Blood Count 7.7 K/mm3 (4.4-11.0)
[2025-11-06 15:15] LABS: Color, Urine Yellow (Yellow); Glucose, Dipstick Normal (Normal); Ketone-Dipstick Negative (Negative); Leukocyte Esterase-Dipstick 25 /ul (Negative); Nitrite-Dipstick Negative (Negative); Occult Blood-Urine Negative /ul (Negative); Protein-Dipstick 100 mg/dl (Negative); Specific Gravity, Urine 1.020 (1.002-1.030)
[2025-11-06 15:16] LABS: Urine Bilirubin Dipstick 1 mg/dL (Negative)
[2025-11-06 16:01] LABS: AST(SGOT) 18 U/L (<=37); Alanine Aminotransfer ALT/SGPT 14 U/L (<=46); Albumin, Serum 3.3 g/dL (3.4-4.8); Alkaline Phosphatase 71 U/L (40-129); Anion Gap 11 (7-18); BUN 14 mg/dL (4-19); BUN/Creat Ratio 10.9 RATIO (10-20); Calcium,Total 9.3 mg/dL (7.6-11.0); Carbon Dioxide 25.8 mmol/L (20.0-29.0); Chloride 101 mmol/L (96-106); Globulin 3.2 g/dL (2.2-4.2); Glucose 127 mg/dL (70-99); Potassium 4.3 mmol/L (3.5-5.1); Vitamin B12 1367 pg/mL (180-914); Vitamin D,25 Hydroxy 62.2 ng/mL (30-100)
[2025-11-06 16:25] LABS: Amylase 63 U/L (28-100); CRP 74.90 mg/L (0.0-3.0); Lipase 33 U/L (13-75)
[2025-11-12 02:06] LABS: Methylmalonic Acid Bld 237 nmol/L (0-378)
== END | disposition home or self-care (01) ==
LOC: CIMLAB 13:34
PROVIDERS: PCP Nurse Practitioner Family; Referring Provider Internal Medicine; Visit Provider Internal Medicine
DX: E53.8 Deficiency of other specified B group vitamins (principal); E55.9 Vitamin D deficiency, unspecified; R68.89 Other general symptoms and signs; R51.9 Headache, unspecified; R11.2 Nausea with vomiting, unspecified; R50.9 Fever, unspecified
CPT/HCPCS: 36415; 80053; 81002; 82150; 82306; 82607; 83690; 83921; 84439; 84443; 85025; 85652; 86140; 87040; 87086